=== PATIENT | female | born 1940 | race Caucasian/White ===

== ENCOUNTER 2016-09-20 13:18 | Outpatient (CLI) | payer MEDICARE ==
[~2016-09-20] VITALS: Ht 167.6 cm; Wt 73.0 kg
[2016-09-20 13:27] VITALS: BP 122/67
[2016-09-20] MEDS ORDERED: PRD10T PO (13:43)
[2016-09-20] MEDS ORDERED: METO-270 PO (13:43)
[2016-09-20] MEDS ORDERED: ASPI-933 PO (13:43)
[2016-09-20] MEDS ORDERED: RIVA20TA PO (13:43)
[2016-09-20 14:09] LABS: BASOPHILS % (AUTO) 0 % (0-10); EOSINOPHILS % (AUTO) 0 % (0-10); LYMPHOCYTES # (AUTO) 1.1 X 10^3 (1.0-4.0); LYMPHOCYTES % (AUTO) 12 % (12-44); MEAN CORPUSCULAR HEMOGLOBIN 32 PG (25-34); MEAN CORPUSCULAR HGB CONC 33 G/DL (32-36); MEAN CORPUSCULAR VOLUME 96 FL (80-99); MEAN PLATELET VOLUME 10.3 FL (7.4-10.4); MONOCYTES # (AUTO) 0.3 X 10^3 (0.0-1.0); MONOCYTES % (AUTO) 4 % (0-12); NEUTROPHILS # (AUTO) 7.4 X 10^3 (1.8-7.8); NEUTROPHILS % (AUTO) 84 % (42-75); PLATELET COUNT 266 10^3/uL (130-400); RED CELL DISTRIBUTION WIDTH 13.6 % (10.0-14.5); WHITE BLOOD COUNT 8.8 10^3/uL (4.3-11.0)
[2016-09-23] MEDS ORDERED: HYDR-3730 PO (12:33)
[2016-09-23] MEDS ORDERED: MESA800T PO (12:33)
== END 2016-09-20 13:55 | disposition home or self-care (01) ==
LOC: PREOP 13:18
PROVIDERS: ATTEND Surgery Pediatric Surgery
DX: Z01.812 Encounter for preprocedural laboratory examination (principal); Z11.2 Encounter for screening for other bacterial diseases; K63.9 Disease of intestine, unspecified
CPT/HCPCS: 36415; 85025; 87081

== ENCOUNTER 2016-09-23 07:53 | Day surgery (SDC) | payer MEDICARE ==
[~2016-09-23] VITALS: Ht 167.6 cm; Wt 73.0 kg
[~2016-09-23 07:53] MED LIST: ASPI-933 PO; METO-270 PO; PRD10T PO; RIVA20TA PO
--- NOTE | 2016-09-23 07:55 | Progress Note-Pre Operative ---
Pre-Operative Progress Note H&P Reviewed The H&P was reviewed, patient examined and no changes noted. Date Seen by Provider: Sep 23, 2016 Time Seen by Provider: 07:55 Date H&P Reviewed: Sep 23, 2016 Time H&P Reviewed: 07:50 Pre-Operative Diagnosis: Colon mass HUSSAIN PETTY APRN Sep 23, 2016 7:55 am
[2016-09-23] MEDS ORDERED: ceFAZolin 1 GM/NS 50 ML IVPB IV ONE ×2 (08:00)
[2016-09-23 08:12] VITALS: BP 152/71
[2016-09-23] MEDS ORDERED: LACTATED RINGERS 1,000 ML IV ONE ×2 (10:10→12:24)
[2016-09-23] MEDS ORDERED: ROCURONIUM 50 MG/5 ML (ZEMURON) VIAL IV ONE (10:10)
[2016-09-23] MEDS ORDERED: fentaNYL INJECTION 100 MCG/2 ML AMP ONE (10:10)
[2016-09-23] MEDS ORDERED: DEXAMETHASONE PF 10 MG/ML (DECADRON) VIAL ONE (10:10)
[2016-09-23] MEDS ORDERED: LIDOCAINE JELLY 2% (XYLOCAINE) 5 ML TUBE ONE (10:10)
[2016-09-23] MEDS ORDERED: proPOfol 200 MG/20 ML (DIPRIVAN) VIAL IV ONE (10:10)
[2016-09-23] MEDS ORDERED: SEVOFLURANE (ULTANE) 15 ML INHAL SOLN ONE ×4 (10:10→12:24)
[2016-09-23] MEDS ORDERED: ONDANSETRON 4 MG/2 ML (SDV) Z0FRAN ONE (10:10)
[2016-09-23] MEDS ORDERED: BUP/EPI 0.5% 1:200,000 (SENSORCAINE) 30 ML VIAL ONE (10:15)
[2016-09-23] MEDS ORDERED: PHENYLEPHRINE 100 MCG/ML 10 ML (ANESTHESIA) SYR ONE (11:05)
[2016-09-23] MEDS: LACTATED RINGERS 1,000 ML IV PRN ×2 (11:30→12:50)
--- NOTE | 2016-09-23 12:22 | Progress Note-Post Operative ---
Post-Operative Progess Note Surgeon (s)/Foundry Melt Supervisor (s) Surgeon SONIDO LORENZO MD [employer] Supervisor: elicia sol MATERIALS DEVELOPMENT ENGINEER Pre-Operative Diagnosis Colon mass Post-Operative Diagnosis segmental colitis cecum. Procedure & Operative Findings Date of Procedure 09/23/16 Procedure Performed/Findings diagnostic laparoscopy. colonoscopy. Anesthesia Type GET Estimated Blood Loss Estimated blood loss (mL): minimal Specimens/Packing Specimens Removed cecal mucosa SONIDO LORENZO MD Sep 23, 2016 12:22 pm
[2016-09-23] MEDS ORDERED: ONDANSETRON 4 MG/2 ML (SDV) Z0FRAN IVP PRN ×2 (12:30→12:45)
[2016-09-23] MEDS ORDERED: HYDROcodone/APAP 5 MG/325 MG (LORTAB) TAB PO ONE (12:30)
[2016-09-23] MEDS ORDERED: ACETAMINOPHEN 325 MG TABLET/CAPLET (TYLENOL) PO PRN (12:30)
[2016-09-23] MEDS ORDERED: fentaNYL INJECTION 100 MCG/2 ML AMP IVP PRN ×2 (12:30→12:45)
[2016-09-23] MEDS ORDERED: HYDR-3730 PO (12:33)
[2016-09-23] MEDS ORDERED: MESA800T PO (12:33)
--- NOTE | 2016-09-23 12:34 | Discharge Inst-Surgical ---
D/C Lap Instructions-MAURA New, Converted, or Re-Newed RX: RX on Chart Follow Up Appt in 2 weeks Activity as tolerated No driving for 24 hours No driving while on pain medications Incentive Spirometry use every 2 hours while awake Regular Diet Symptoms to Report: Fever over 101 degree F, Nausea/Vomiting Infection Signs and Symptoms to report: Increased redness, Foul odor of wound, Increased drainage Bathing instructions: May shower Operative Area Clean/Dry; Keep incision clean/dry If any problems/questions: Contact your physician or go to Emergency Room SONIDO LORENZO MD Sep 23, 2016 12:33 pm
[2016-09-23] MEDS ORDERED: HYDROmorphone (DILAUDID) 2 MG/ML VIAL ONE (12:37)
[2016-09-23] MEDS: HYDROmorphone (DILAUDID) 2 MG/ML VIAL IVP PRN ×2 (12:40→12:50)
[2016-09-23 13:35] VITALS: BP 130/56
[2016-09-23 14:05] VITALS: BP 130/79
[2016-09-23 14:35] VITALS: BP 132/72
[2016-09-23 14:45] VITALS: BP 132/72
--- NOTE | 2016-09-23 17:26 | OPERATIVE REPORT ---
DATE OF SERVICE: 09/23/2016 ATTENDING PHYSICIAN: Dr. Lubna Perez in [place], [place]. PREOPERATIVE DIAGNOSIS: Cecal mass. POSTOPERATIVE DIAGNOSES: Segmental colitis of the cecum, mesenteric fat creeping along the cecum. The remainder of the colon and small bowel, liver and gallbladder appeared normal. PROCEDURES: Diagnostic laparoscopy, colonoscopy with biopsy. SURGEON: Dr. Estes. DIRECTOR OF PLANNING: elicia sol APRN ANESTHESIA: General endotracheal. ESTIMATED BLOOD LOSS: Minimal. FINDINGS: No intraperitoneal lesions were identified including no full thickness serosal inflammatory changes o tumors. The only minor abnormality may have been the mesenteric fat creeping along the right side of the colon. There were no active inflammatory changes, no masses, no lymphadenopathy. The liver and gallbladder appeared normal as did the stomach and omentum. The entire small bowel and colon were ran and no other abnormalities detected. On colonoscopy, there were chronic mucosal inflammatory changes which encompassed only the cecum. The appendix was surgically absent. There was no fungating masses or polyps identified. DISPOSITION: The patient tolerated the procedure well. INDICATIONS: The patient is a 76-year-old female who was referred over to us for low back pain as well as a lesion identified on CT scan. She states that she has had abdominal pain. She had abdominal pain one year ago and underwent a CT scan which did not show any abnormalities. Since that time, she developed the abdominal pain; however, also developed back pain which persisted and worsened over the past several weeks. Upon further questioning, she does report a history of constipation as well as hemorrhoidal bleeding requiring hemorrhoidectomy around 2011. She does not report any episodes of red blood per rectum, nor any dark tarry stools. She states that she had her last colonoscopy approximately 3 years ago and remembers that to be normal. She is otherwise tolerating a regular diet and has not reported any recent inadvertent weight loss. She does not report any family history of colon cancer. She has had a previous surgery before encompassing a hysterectomy and oophorectomy and is unsure if the appendix was removed at the time or not. The CT scan was reviewed, which did show thickening around the base of the cecum near the appendiceal opening. Due to her recurrent symptoms as well as uncertainty of diagnosis, she wanted to proceed with a diagnostic laparoscopy. DESCRIPTION OF PROCEDURE: The patient was brought to the operating room, laid supine on the table. After adequate IV pain and sedating medications and general endotracheal intubation, the abdomen was prepped and draped in standard surgical fashion. A 0.5% Marcaine with epinephrine was then used to anesthetize the overlying skin in the left upper abdominal quadrant. A small transverse skin incision was made using a 15 blade. An 0 silk suture was applied to the medial aspect of the incision for retraction and a Veress needle inserted with a low opening pressure of 0 mmHg and the abdomen was then insufflated to 15 mmHg pressure. The Veress needle removed and a 5 mm Xcel trocar placed followed by a 5 mm 45-degree angle laparoscope visualizing the peritoneal cavity. A 4 quadrant abdominal exploration was performed. No carcinomatosis or obvious tumors or lymphadenopathy was identified. The gallbladder and liver appeared normal as did the stomach and omentum. Under direct visualization, we then proceeded to place the supraumbilical 10 mm port after the skin and peritoneum were anesthetized using 0.5% Marcaine with epinephrine and a transverse skin incision made using a 15 blade. In a similar manner, a suprapubic 5 mm port was placed. The patient was then placed in Trendelenburg position. There was a surgically absent appendix. There was no serosal inflammatory changes of the cecum identified. The only abnormality may have been mesenteric fat creeping along the antimesenteric side of the right colon. The entire colon was examined with no inflammatory changes identified. The entire small bowel was ran from the cecum and terminal ileum all the way to the ligament of Treitz with no mucosal inflammatory changes or serosal inflammatory changes identified as well as no tumors. There was also no lymphadenopathy. There was a surgically absent uterus as well as ovaries, no hernias identified as well. The sterile field was protected and we then proceeded with the colonoscopy portion of the procedure. The patient was placed in a frog leg position and a digital rectal examination was performed. There were no sinus tracts or drainage coming from the anus. Normal sphincter tone was felt and there were no palpable masses. The endoscope was then intubated to the anus and rectum and gently insufflated. The endoscope was then advanced to the valves of Kapoor of the rectum with no polyps or any neoplasms identified as well as no mucosal inflammatory changes. We then proceeded through the sigmoid colon where no diverticulosis identified. The endoscope was then advanced through the descending, transverse and ascending colon to the cecum. At the level of the cecum, a segmental colitis was identified. This appeared to be chronic in nature. Multiple biopsies were taken of this area using forceps with visualization of good hemostasis. The endoscope was then slowly withdrawn while taking a second look and suctioning of residual air with no additional findings. The patient tolerated this portion of the procedure well. We will await the biopsy results; however, treat her for inflammatory bowel disease and start mesalamine 1600 mg p.o. t.i.d. for the next 2 weeks. We then proceeded back to the sterile field and under direct visualization, the 10 mm port site fascia and peritoneum were then closed under direct visualization using a Basim-Kathleen device and 0 Vicryl suture. The abdomen was desufflated and the remaining ports were removed. All skin incisions were closed using 4-0 Monocryl running subcuticular sutures. Wounds were then cleaned and covered with Dermabond. The patient tolerated the procedure well. We will start IV and oral pain medication as well as a clear liquid diet. Once she is tolerating clears and has good pain control with oral pain medications and ambulating well, we will discharge her home. Job ID: [id number] DocumentID: [id number] Dictated Date: 09/23/2016 12:45:10 Customer Contact Representative Date: 09/23/2016 15:14:44 Dictated By: SONIDO ESTES MD [facility]
== END 2016-09-23 14:45 | disposition home or self-care (01) ==
LOC: SDC 07:53
PROVIDERS: ATTEND Surgery Pediatric Surgery
DX: K50.10 Crohn's disease of large intestine without complications (principal); I48.91 Unspecified atrial fibrillation; I10 Essential (primary) hypertension; Z79.899 Other long term (current) drug therapy
CPT/HCPCS: 88305; 94664

== ENCOUNTER 2018-08-24 16:00 | Emergency (ER) | payer MEDICARE ==
[~2018-08-24] VITALS: Ht 167.6 cm; Wt 76.2 kg
[~2018-08-24 16:00] MED LIST changes: +HYDR-3730 PO; +MESA800T PO; -METO-270 PO; +METO-387 PO; -RIVA20TA PO; +RIVA20TA2 PO
--- NOTE | 2018-08-24 16:21 | ED Head Injury ---
General Chief Complaint: Trauma-Non Activation Stated Complaint: FALL - HIT HEAD ON DRESSER Source: patient Exam Limitations: no limitations History of Present Illness Date Seen by Provider: August 24, 2018 Time Seen by Provider: 16:12 Initial Comments Patient arrives by private conveyance with chief complaint of head injury after she was up on a small step stool about half an off the ground trying to hang curtains doing some spring cleaning area and chief striking the right frontal scalp against a dresser. She is not sure if she got knocked out but she doesn't think she lost consciousness. She had no nausea but little momentary instability and difficulty getting back For about 5 or 10 minutes afterwards. She is on Xarelto for history of atrial fibrillation. She's not having any nausea. She doesn't have headache she rates as a 3 out of 10 but does not want anything for it presently. Allergies and Home Medications Allergies Coded Allergies: methotrexate (Verified Allergy, Unknown, DIFFICULTY BREATHING, 08/24/18) morphine (Verified Allergy, Unknown, NAUSEA, 08/24/18) Home Medications Aspirin 81 Mg Tablet.dr, 81 MG PO DAILY, (Reported) Hydrocodone/Acetaminophen 1 Each Tablet, 1-2 EACH PO Q4H Prescribed by: SONIDO LORENZO on 09/23/16 1233 Mesalamine 800 Mg Tablet.dr, 1,600 MG PO TID Prescribed by: SONIDO LORENZO on 09/23/16 1233 Metoprolol Succinate 25 Mg Tab.er.24h, 25 MG PO DAILY, (Reported) Prednisone 10 Mg Tab, 10 MG PO DAILY, (Reported) Rivaroxaban 20 Mg Tablet, 20 MG PO DAILY, (Reported) Patient Home Medication List Home Medication List Reviewed: Yes Review of Systems Review of Systems Constitutional: No chills, No diaphoresis Eyes: Denies Pain, Denies Photophobia Ears, Nose, Mouth, Throat: denies ear pain, denies ear discharge Respiratory: No cough, No short of breath Cardiovascular: No chest pain, No edema Gastrointestinal: No abdominal pain, No constipation, No diarrhea, No nausea Genitourinary: No discharge, No dysuria Past Hngcews-Azwkia-Eyyewb Hx Patient Social History Alcohol Use: Denies Use Recreational Drug Use: No Smoking Status: Never a Smoker Recent Hopitalizations: No Immunizations Up To Date Date of Pneumonia Vaccine: Sep 20, 2013 Seasonal Allergies Seasonal Allergies: Yes Past Medical History Appendectomy, Joint Replacement, Tubal Ligation Atrial Fibrillation, Hypertension Arthritis, Chronic Back Pain Family Medical History Alzheimer's disease 19 MOTHER Cardiovascular disease 19 FATHER Hypertension 19 FATHER Myocardial infarction 19 FATHER Respiratory disorder G8 BROTHER (lung CA) Physical Exam Vital Signs Vital Signs - First Documented 08/24/18 16:18 Temp 96.9 Pulse 81 Resp 20 B/P (MAP) 167/75 (105) Pulse Ox 97 Capillary Refill : Height, Weight, BMI Height: 5'6.00" Weight: 161lbs. 0.0oz. 73.630753cz; 26.0 BMI Method: General Appearance: WD/WN, no apparent distress HEENT: PERRL/EOMI, normal ENT inspection, TMs normal, pharynx normal, other (3 cm round ecchymotic hematoma on the right forehead above the right eyebrow) Neck: non-tender, full range of motion, supple, normal inspection Cardiovascular: normal peripheral pulses, regular rate, rhythm Respiratory: no respiratory distress, no accessory muscle use Psychiatric: alert, oriented x 3 Crainal Nerves: normal hearing, normal speech, PERRL Coordination/Gait: normal finger to nose, normal gait Motor/Sensory: no motor deficit, no sensory deficit, no pronator drift Skin: warm/dry, ecchymosis Rob Coma Score Best Eye Response: (4) Open Spontaneously Best Verbal Response: (5) Oriented Best Motor Response: (6) Obeys Commands Rob Total: 15 Progress/Results/Core Measures Results/Orders My Orders Orders - GERALD CHEW Ct Head/Cervical Spine Wo (08/24/18 16:16) Vital Signs/I&O 08/24/18 16:18 Temp 96.9 Pulse 81 Resp 20 B/P (MAP) 167/75 (105) Pulse Ox 97 Progress Progress Note : Time: 16:[address] of the head and neck is indicated. She does not seem to have any neurologic dysfunction and has declined anything for pain at the moment. Based on her momentary disorientation or difficulty with balance after her fall and head strike would diagnose her with a mild concussion and have done conservative counseling. She's having no issues with ambulation at this time. Diagnostic Imaging Diagonstic Imaging: CT (without contrast) Plain Films/CT/US/NM/MRI: c-spine, head Comments No acute intracranial hemorrhage, mass effect, tumor or midline shift. No calvarial fracture. No cervical spinal fracture or subluxation. There is moderate degenerative changes. [facility] [place], [place] NAME: RALEIGH JOSEPH [facility] REC#: [id number] PT STATUS: REG ER : 1940 PHYSICIAN: GERALD CHEW MD ADMIT DATE: 08/24/18/ER FS Draft Date of Exam:08/24/18 CT HEAD/CERVICAL SPINE WO CLINICAL INDICATION: Patient states she fell and hit head on dresser. Patient has swelling and bruising at right side of forehead. EXAM: Head CT without IV contrast. Axial CT scan of the cervical spine with sagittal and coronal reformations. COMPARISON: None. FINDINGS: Head CT: There is skull streak artifact which obscures portions of the brainstem, posterior fossa, and portions of the brain at the skull base. There is no evidence of acute cerebral infarct, intracranial hemorrhage, or gross mass effect. The brain parenchymal volume appears appropriate for patient's age. There are subtle patchy areas of low-attenuation white matter changes involving both cerebral hemispheres, likely representing chronic small vessel ischemic disease. There is normal bartholomew-white matter distinction. There is no significant midline shift or herniation. The visualized upper [place] vascular structures have normal flow void appearance. There is no evidence of hydrocephalus. The basal cisterns are unremarkable. There is a small area of extracranial soft tissue swelling involving the right frontal region. There is no skull fracture. The skull, extracranial soft tissue, and orbits are unremarkable. There is mild mucosal thickening involving the sphenoid sinus. Temporal bones show no significant abnormality. Cervical spine: There is no acute cervical spine fracture or dislocation. There are cervical spine vertebral body spurs and facet arthropathy. There is moderate loss of intervertebral disc height seen at the C3 through C7 levels. There is at least wacn-wq-kjfbdbrv central canal narrowing at the C3 through C7 levels with femhdsld-rj-ivhjbv multilevel neural foramen narrowing. Visualized upper lung blunt are clear. The neck soft tissue structures are unremarkable. IMPRESSION: 1: There is no evidence of acute intracranial hemorrhage. There is a small area of extracranial soft tissue swelling in the right frontal region. There is no skull fracture. 2: There is cervical spine degenerative disease with no acute fracture or dislocation. Dictated on workstation # [id number] Dict: 08/24/18 1643 Trans: 08/24/18 1657 [facility] [id number] Interpreted by: SAUD DUCKWORTH MD Electronically signed by: Departure Impression Primary Impression: Fall Qualified Codes: W19.XXXA - Unspecified fall, initial encounter Additional Impressions: Contusion of forehead Qualified Codes: S00.83XA - Contusion of other part of head, initial encounter Mild concussion Qualified Codes: S06.0X0A - Concussion without loss of consciousness, initial encounter Disposition: HOME, SELF-CARE Condition: Stable Departure-Patient Inst. Decision time for Depature: 17:14 Referrals: SHEFALI ANDERSON MD (PCP/Family) Primary Care Physician Patient Instructions: Concussion, Adult (DC) Add. Discharge Instructions: Apply an ice pack to the goose egg on your forehead as often as necessary to keep the swelling down and pain under control for the first 1-2 days. Use Tylenol 1000 mg every 8 hours in addition to ibuprofen 600 mg every 8 hours as needed for pain. If you have any symptoms of a concussion such as headache, nausea, off balance, blurry vision then you need to get some sleep and temperature brain to rest. If you're having confusion, weakness, numbness or severe symptoms that are not improving despite rest or pain meds then you should return to the ER for further evaluation. All discharge instructions reviewed with patient and/or family. Voiced understanding. GERALD CHEW August 24, 2018 16:21
--- NOTE | 2018-08-24 16:57 | Diagnostic Imaging Report ---
CLINICAL INDICATION: Patient states she fell and hit head on dresser. Patient has swelling and bruising at right side of forehead. EXAM: Head CT without IV contrast. Axial CT scan of the cervical spine with sagittal and coronal reformations. COMPARISON: None. FINDINGS: Head CT: There is skull streak artifact which obscures portions of the brainstem, posterior fossa, and portions of the brain at the skull base. There is no evidence of acute cerebral infarct, intracranial hemorrhage, or gross mass effect. The brain parenchymal volume appears appropriate for patient's age. There are subtle patchy areas of low-attenuation white matter changes involving both cerebral hemispheres, likely representing chronic small vessel ischemic disease. There is normal bartholomew-white matter distinction. There is no significant midline shift or herniation. The visualized [place] of [place] vascular structures have normal flow void appearance. There is no evidence of hydrocephalus. The basal cisterns are unremarkable. There is a small area of extracranial soft tissue swelling involving the right frontal region. There is no skull fracture. The skull, extracranial soft tissue, and orbits are unremarkable. There is mild mucosal thickening involving the sphenoid sinus. Temporal bones show no significant abnormality. Cervical spine: There is no acute cervical spine fracture or dislocation. There are cervical spine vertebral body spurs and facet arthropathy. There is moderate loss of intervertebral disc height seen at the C3 through C7 levels. There is at least kvhe-dp-gcysckob central canal narrowing at the C3 through C7 levels with fqxmmztu-tv-ecoqol multilevel neural foramen narrowing. Visualized upper lung blunt are clear. The neck soft tissue structures are unremarkable. IMPRESSION: 1: There is no evidence of acute intracranial hemorrhage. There is a small area of extracranial soft tissue swelling in the right frontal region. There is no skull fracture. 2: There is cervical spine degenerative disease with no acute fracture or dislocation. Dictated by: Dictated on workstation # [id number]
[2018-08-24 17:19] VITALS: BP 165/69
== END 2018-08-24 17:20 | disposition home or self-care (01) ==
LOC: EDUNIT# 16:00 → ER FS 16:01
DX: S06.0X0A Concussion without loss of consciousness, initial encounter (principal); I48.91 Unspecified atrial fibrillation; I10 Essential (primary) hypertension; R40.2142 Coma scale, eyes open, spontaneous, at arrival to emergency department; R40.2252 Coma scale, best verbal response, oriented, at arrival to emergency department; R40.2362 Coma scale, best motor response, obeys commands, at arrival to emergency department; Z82.49 Family history of ischemic heart disease and other diseases of the circulatory system; Z98.51 Tubal ligation status; Z90.49 Acquired absence of other specified parts of digestive tract; Z88.5 Allergy status to narcotic agent; Z88.8 Allergy status to other drugs, medicaments and biological substances; Z79.82 Long term (current) use of aspirin; Z79.52 Long term (current) use of systemic steroids; Z79.01 Long term (current) use of anticoagulants; W22.03XA Walked into furniture, initial encounter
CPT/HCPCS: 70450; 72125

== ENCOUNTER → 2020-01-17 | Outpatient (CLI) | payer MEDICARE ==
[~2020-01-17] MED LIST changes: -METO-387 PO; +MTP25TSR PO
[2020-01-17 10:02] LABS: BILIRUBIN,TOTAL 0.5 MG/DL (0.1-1.0); CALCIUM 9.5 MG/DL (8.5-10.1); CREATININE SERUM 1.02 MG/DL (0.60-1.30); TOTAL PROTEIN 6.7 GM/DL (6.4-8.2)
== END ==
LOC: LAB FS 09:23
PROVIDERS: ATTEND Family Medicine
DX: E78.2 Mixed hyperlipidemia (principal)
CPT/HCPCS: 36415; 80053; 80061

== ENCOUNTER 2020-02-22 12:42 | Emergency (ER) | payer MEDICARE ==
[~2020-02-22] VITALS: Ht 170.1 cm; Wt 76.3 kg
[2020-02-22] MEDS ORDERED: KETOROLAC 60 MG/2 ML VIAL IV ONE (13:00)
[2020-02-22] MEDS ORDERED: ONDANSETRON 4 MG/2 ML (SDV) Z0FRAN IVP ONE (13:00)
--- NOTE | 2020-02-22 13:02 | ED Lower Extremity ---
General Chief Complaint: Lower Extremity Stated Complaint: LT FOOT PAIN Source: patient, RN/MD, RN notes reviewed Exam Limitations: no limitations History of Present Illness Date Seen by Provider: Feb 22, 2020 Time Seen by Provider: 12:55 Initial Comments This patient is an 79-year-old female presents to the emergency department for left foot pain. Patient has redness to the left midfoot medially at the arch. Complaints significant pain. Patient states it started yesterday is gradually gotten worse. Patient denies any injury. Onset: yesterday Pain/Injury Location: left foot Method of Injury: unknown Allergies and Home Medications Allergies Coded Allergies: methotrexate (Verified Allergy, Unknown, DIFFICULTY BREATHING, 08/24/18) morphine (Verified Allergy, Unknown, NAUSEA, 08/24/18) Home Medications Aspirin 81 Mg Tablet.dr, 81 MG PO DAILY, (Reported) Hydrocodone/Acetaminophen 1 Each Tablet, 1-2 EACH PO Q4H Prescribed by: SONIDO LORENZO on 09/23/16 1233 Mesalamine 800 Mg Tablet.dr, 1,600 MG PO TID Prescribed by: SONIDO LORENZO on 09/23/16 1233 Metoprolol Succinate 25 Mg Tab.er.24h, 25 MG PO DAILY, (Reported) Prednisone 10 Mg Tab, 10 MG PO DAILY, (Reported) Rivaroxaban 20 Mg Tablet, 20 MG PO DAILY, (Reported) Patient Home Medication List Home Medication List Reviewed: Yes Review of Systems Constitutional: No no symptoms reported, No see HPI, No chills, No diaphoresis, No dizziness, No fever, No malaise, No weakness, No weight gain, No weight loss, No other EENTM: No see HPI, No no symptoms reported, No ear discharge, No hearing loss, No ear pain, No blurred vision, No double vision, No eye pain, No tearing, No vision loss, No dental problems, No hoarseness, No mouth pain, No mouth swelling, No epistaxis, No nose congestion, No nose pain, No throat pain, No throat swelling, No other Respiratory: No no symptoms reported, No see HPI, No cough, No dyspnea on exertion, No hemoptysis, No orthopnea, No phlegm, No short of breath, No stridor, No wheezing, No other Cardiovascular: No no symptoms reported, No see HPI, No chest pain, No edema, No Hx of Intervention, No palpitations, No syncope, No vascular heart diseas, No other Gastrointestinal: No RUQ, No LUQ, No RLQ, No LLQ, No no symptoms reported, No see HPI, No abdominal pain, No constipation, No diarrhea, No dysphagia, No hematemesis, No heartburn, No jaundice, No loss of appetite, No melena, No nausea, No vomiting, No other Musculoskeletal: see HPI, gout All Other Systems Reviewed Negative Unless Noted: Yes Past Iyeeotd-Nkbkuu-Pxyjgk Hx Patient Social History Recent Foreign Travel: No Contact w/Someone Who Travel: No Recent Hopitalizations: No Immunizations Up To Date Date of Pneumonia Vaccine: Sep 20, 2013 Seasonal Allergies Seasonal Allergies: Yes Past Medical History Surgeries: Yes (vein stripped in R leg, bilat TKR, R ovary removed,hemorrhoidectomy ) Appendectomy, Joint Replacement, Tubal Ligation Respiratory: No Cardiac: Yes (temporal arteritis) Atrial Fibrillation, Hypertension Neurological: No Gastrointestinal: Yes (abd pain CT found colon mass, ) Musculoskeletal: Yes Arthritis, Chronic Back Pain Endocrine: No Cancer: No Psychosocial: No Integumentary: No 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 0.0oz. 76.719953in; 26.0 BMI Method:Stated General Appearance: WD/WN, no apparent distress Cardiovascular: normal peripheral pulses, regular rate, rhythm, no edema, no gallop, no JVD, no murmur Respiratory: chest non-tender, lungs clear, normal breath sounds, no respiratory distress, no accessory muscle use Gastrointestinal: normal bowel sounds, non tender, soft, no organomegaly, no pulsatile mass Feet: left foot no evidence of injury, left foot soft tissue tenderness Skin: normal color, warm/dry Progress/Results/Core Measures Results/Orders Lab Results Laboratory Tests Test 02/22/20 13:15 Range/Units White Blood Count 10.8 4.3-11.0 10^3/uL Red Blood Count 4.51 4.35-5.85 10^6/uL Hemoglobin 14.8 11.5-16.0 G/DL Hematocrit 44 35-52 % Mean Corpuscular Volume 97 80-99 FL Mean Corpuscular Hemoglobin 33 25-34 PG Mean Corpuscular Hemoglobin Concent 34 32-36 G/DL Red Cell Distribution Width 13.2 10.0-14.5 % Platelet Count 243 130-400 10^3/uL Mean Platelet Volume 10.3 7.4-10.4 FL Immature Granulocyte % (Auto) 1 % Neutrophils (%) (Auto) 68 42-75 % Lymphocytes (%) (Auto) 21 12-44 % Monocytes (%) (Auto) 8 0-12 % Eosinophils (%) (Auto) 1 0-10 % Basophils (%) (Auto) 1 0-10 % Neutrophils # (Auto) 7.3 1.8-7.8 X 10^3 Lymphocytes # (Auto) 2.3 1.0-4.0 X 10^3 Monocytes # (Auto) 0.8 0.0-1.0 X 10^3 Eosinophils # (Auto) 0.1 0.0-0.3 10^3/uL Basophils # (Auto) 0.1 0.0-0.1 10^3/uL Immature Granulocyte # (Auto) 0.1 0.0-0.1 10^3/uL Sodium Level 141 135-145 MMOL/L Potassium Level 3.5 L 3.6-5.0 MMOL/L Chloride Level 104 98-107 MMOL/L Carbon Dioxide Level 26 21-32 MMOL/L Anion Gap 11 5-14 MMOL/L Blood Urea Nitrogen 13 7-18 MG/DL Creatinine 1.29 0.60-1.30 MG/DL Estimat Glomerular Filtration Rate 40 BUN/Creatinine Ratio 10 Glucose Level 96 70-105 MG/DL Calcium Level 9.3 8.5-10.1 MG/DL Corrected Calcium 9.3 8.5-10.1 MG/DL Total Bilirubin 0.7 0.1-1.0 MG/DL Aspartate Amino Transf (AST/SGOT) 19 5-34 U/L Alanine Aminotransferase (ALT/SGPT) 15 0-55 U/L Alkaline Phosphatase 42 40-136 U/L Total Protein 6.5 6.4-8.2 GM/DL Albumin 4.0 3.2-4.5 GM/DL My Orders Orders - BRANT CHU MD Uric Acid (02/22/20 12:59) Ed Iv/Invasive Line Start (02/22/20 12:59) Comprehensive Metabolic Panel (02/22/20 12:59) Cbc With Automated Diff (02/22/20 12:59) Urinalysis (02/22/20 12:59) Ondansetron Injection (Zofran Injectio (02/22/20 13:00) Ketorolac Injection (Toradol Injection) (02/22/20 13:00) Foot 3 View Left (02/22/20 12:59) Medications Given in ED Current Medications Medications Dose Ordered Sig/Kristi Route Start Time Stop Time Status Last Admin Dose Admin Ketorolac Tromethamine 15 mg ONCE ONCE IV 02/22/20 13:00 02/22/20 13:01 DC 02/22/20 13:07 15 MG Ondansetron HCl 4 mg ONCE ONCE IVP 02/22/20 13:00 02/22/20 13:01 DC 02/22/20 13:07 4 MG Progress Progress Note : Time: 14:49 Progress Note Negative evaluation in the emergency department for any acute findings. However believe the patient is developed pseudogout left foot. Patient given instructions patient follow up with PCP in 2-3 days. Departure Impression Primary Impression: Pseudogout of joint of foot Disposition: 01 HOME, SELF-CARE Condition: Stable Departure-Patient Inst. Decision time for Depature: 14:49 Referrals: SHEFALI ANDERSON MD (PCP/Family) Primary Care Physician Patient Instructions: Calcium Pyrophosphate Deposition DiseaseDischarge Instructions (DC) Add. Discharge Instructions: Keep foot elevated rest and drink plenty of fluids and take medications as instructed. Follow-up with PCP in 2-3 days All discharge instructions reviewed with patient and/or family. Voiced understanding. Scripts Diclofenac Sodium (Diclofenac Sodium) 75 Mg Tablet. 75 MG PO BID for 10 Days, #20 TAB 0 Refills Prov: BRANT CHU MD 02/22/20 BRANT CHU MD Feb 22, 2020 13:02
--- NOTE | 2020-02-22 13:24 | Diagnostic Imaging Report ---
INDICATION: Left foot pain and swelling and redness. AP, oblique, and lateral views the left foot are obtained. No fracture or acute bony abnormality is seen. There is no overt erosive bony lesion. IMPRESSION: Negative left foot. Dictated by: Dictated on workstation # [id number]
--- NOTE | 2020-02-22 13:25 | NUR ---
Checking on patient and she reports she is ready to go if able. Explained ER work up up take 1 to 1 1/2 hrs if labs also with radiology studies.
[2020-02-22 13:30] LABS: BASOPHILS # (AUTO) 0.1 10^3/uL (0.0-0.1); BASOPHILS % (AUTO) 1 % (0-10); EOSINOPHILS # (AUTO) 0.1 10^3/uL (0.0-0.3); EOSINOPHILS % (AUTO) 1 % (0-10); HEMATOCRIT 44 % (35-52); HEMOGLOBIN 14.8 G/DL (11.5-16.0); LYMPHOCYTES # (AUTO) 2.3 X 10^3 (1.0-4.0); LYMPHOCYTES % (AUTO) 21 % (12-44); MEAN CORPUSCULAR HEMOGLOBIN 33 PG (25-34); MEAN CORPUSCULAR HGB CONC 34 G/DL (32-36); MEAN CORPUSCULAR VOLUME 97 FL (80-99); MEAN PLATELET VOLUME 10.3 FL (7.4-10.4); MONOCYTES # (AUTO) 0.8 X 10^3 (0.0-1.0); MONOCYTES % (AUTO) 8 % (0-12); NEUTROPHILS # (AUTO) 7.3 X 10^3 (1.8-7.8); NEUTROPHILS % (AUTO) 68 % (42-75); PLATELET COUNT 243 10^3/uL (130-400); WHITE BLOOD COUNT 10.8 10^3/uL (4.3-11.0)
[2020-02-22 13:48] LABS: BILIRUBIN,TOTAL 0.7 MG/DL (0.1-1.0); CALCIUM 9.3 MG/DL (8.5-10.1); CREATININE SERUM 1.29 MG/DL (0.60-1.30); POTASSIUM 3.5 MMOL/L (3.6-5.0); TOTAL PROTEIN 6.5 GM/DL (6.4-8.2)
--- NOTE | 2020-02-22 14:35 | NUR ---
Rechecking on patient and pt denies any c/o's except pain is in foot if weight bearing
[2020-02-22] MEDS ORDERED: DICL75TA2 PO (14:50)
[2020-02-22 14:56] VITALS: BP 118/51
[2020-02-22] MEDS ORDERED: METO50TA7 (19:24)
[2020-02-22] MEDS ORDERED: ROSU20TA32 (19:24)
[2020-02-23 16:04] LABS: URIC ACID 6.7 MG/DL (2.6-7.2)
== END 2020-02-22 14:56 | disposition home or self-care (01) ==
LOC: EDUNIT# 12:42 → ER FS 12:43
DX: M11.272 Other chondrocalcinosis, left ankle and foot (principal); I10 Essential (primary) hypertension; G89.29 Other chronic pain; M54.9 Dorsalgia, unspecified; Z82.49 Family history of ischemic heart disease and other diseases of the circulatory system; Z88.5 Allergy status to narcotic agent; Z86.718 Personal history of other venous thrombosis and embolism; Z79.82 Long term (current) use of aspirin; Z79.52 Long term (current) use of systemic steroids; Z79.01 Long term (current) use of anticoagulants; Z79.891 Long term (current) use of opiate analgesic
CPT/HCPCS: 36415; 73630; 80053; 84550; 85025

== ENCOUNTER 2021-01-11 10:32 | Emergency (ER) | payer MEDICARE ==
[~2021-01-11] VITALS: Ht 162.6 cm; Wt 74.8 kg
[~2021-01-11 10:32] MED LIST changes: +DICL75TA2 PO; +METO50TA7; +ROSU20TA32
--- NOTE | 2021-01-11 10:43 | ED General ---
General Stated Complaint: RT EYE/FACIAL SHINGLES Source of Information: Patient Exam Limitations: No Limitations History of Present Illness Date Seen by Provider: Jan 11, 2021 Time Seen by Provider: 10:35 Initial Comments Patient is an 80-year-old female with history of rosacea and current shingles outbreak involving left shoulder and upper back x3 weeks who presents with central facial rash and right redness and pain. Patient is currently on Valtrex and states her back and shoulder lesions are improving. She states her facial rash broke out yesterday with eye involvement yesterday. Reports eye pain but denies drainage or matting. Patient does not wear contact lenses but wears corrective lenses. No other symptoms or complaints. Timing/Duration: 2-3 Days Severity: Moderate Modifying Factors: improves with Other Associated Systoms: Other Allergies and Home Medications Allergies Coded Allergies: methotrexate (Verified Allergy, Unknown, DIFFICULTY BREATHING, 08/24/18) morphine (Verified Allergy, Unknown, NAUSEA, 08/24/18) Patient Home Medication List Home Medication List Reviewed: Yes Aspirin (Ecotrin) 81 Mg Tablet.dr, 81 MG PO DAILY, (Reported) Entered as Reported by: HERLINDA VIDES on 09/20/16 1343 Cephalexin (Cephalexin) 500 Mg Tablet, 500 MG PO TID Prescribed by: ARSENIO LARSON on 01/11/21 112 Diclofenac Sodium (Diclofenac Sodium) 75 Mg Tablet.dr, 75 MG PO BID Prescribed by: BRANT CHU on 02/22/20 1450 Metoprolol Succinate (Metoprolol Succinate) 50 Mg Tab.er.24h, (Reported) Entered as Reported by: JOB POLLARD on 02/22/20 192 Ofloxacin (Ocuflox) 5 Ml Soln, 5 ML OP Q4H Prescribed by: ARSENIO LARSON on 01/11/21 112 Rivaroxaban (Xarelto Tablet) 20 Mg Tablet, 20 MG PO DAILY, (Reported) Entered as Reported by: HERLINDA VIDES on 09/20/16 1343 Rosuvastatin Calcium (Rosuvastatin Calcium) 20 Mg Tablet, (Reported) Entered as Reported by: JOB POLLARD on 02/22/201923 Tramadol HCl (Tramadol HCl) 50 Mg Tablet, 50 MG PO Q4H PRN for PAIN-MODERATE (5- 7) Prescribed by: ARSENIO LARSON on 01/11/21 1125 Review of Systems Review of Systems Constitutional: see HPI EENTM: see HPI Respiratory: see HPI Cardiovascular: see HPI Gastrointestinal: see HPI Genitourinary: see HPI Musculoskeletal: see HPI Skin: see HPI Psychiatric/Neurological: See HPI Hematologic/Lymphatic: See HPI Immunological/Allergic: see HPI All Other Systems Reviewed Negative Unless Noted: Yes Past Gbbjenn-Ugrhpa-Usagyo Hx Patient Social History Tobacco Use?: No Seasonal Allergies Seasonal Allergies: Yes Past Medical History Surgeries: Yes (vein stripped in R leg, bilat TKR, R ovary removed,hemorrhoidectomy ) Appendectomy, Joint Replacement, Tubal Ligation Respiratory: No Cardiac: Yes (temporal arteritis) Atrial Fibrillation, Hypertension Neurological: No Genitourinary: No Gastrointestinal: Yes (abd pain CT found colon mass ) Musculoskeletal: Yes Arthritis, Chronic Back Pain Endocrine: No HEENT: No Cancer: No Psychosocial: No Integumentary: No Blood Disorders: No (DVT in 1979) Family Medical History Alzheimer's disease 19 MOTHER Cardiovascular disease 19 FATHER Hypertension 19 FATHER Myocardial infarction 19 FATHER Respiratory disorder G8 BROTHER (lung CA) Physical Exam Vital Signs Vital Signs - First Documented 01/11/21 10:40 Temp 36.4 Pulse 87 Resp 18 B/P (MAP) 156/78 (104) Pulse Ox 96 O2 Delivery Room Air Capillary Refill : Height, Weight, BMI Height: 5'6.00" Weight: 168lbs. 0.0oz. 76.092504ur; 26.00 BMI Method:Stated General Appearance: Anxious Eyes: Right Eye Other (Conjunctiva injected, central corneal abrasion does not fit dendritic pattern. Visual acuity per nurse notes.); Bilateral Eye Normal Inspection, Bilateral Eye PERRL HEENT: PERRL/EOMI, Pharynx Normal, Moist Mucous Membranes Neck: Full Range of Motion, Normal Inspection, Supple Progress/Results/Core Measures Suspected Sepsis SIRS Temperature: Pulse: Respiratory Rate: Laboratory Tests 01/11/21 11:08: White Blood Count 8.8 Blood Pressure / Mean: Laboratory Tests 01/11/21 11:08: Platelet Count 217 Results/Orders Lab Results Laboratory Tests Test 01/11/21 11:08 Range/Units White Blood Count 8.8 4.3-11.0 10^3/uL Red Blood Count 4.35 3.80-5.11 10^6/uL Hemoglobin 14.3 11.5-16.0 g/dL Hematocrit 43 35-52 % Mean Corpuscular Volume 98 80-99 fL Mean Corpuscular Hemoglobin 33 25-34 pg Mean Corpuscular Hemoglobin Concent 34 32-36 g/dL Red Cell Distribution Width 13.4 10.0-14.5 % Platelet Count 217 130-400 10^3/uL Mean Platelet Volume 10.1 9.0-12.2 fL Immature Granulocyte % (Auto) 0 % Neutrophils (%) (Auto) 63 42-75 % Lymphocytes (%) (Auto) 27 12-44 % Monocytes (%) (Auto) 9 0-12 % Eosinophils (%) (Auto) 1 0-10 % Basophils (%) (Auto) 1 0-10 % Neutrophils # (Auto) 5.5 1.8-7.8 X 10^3 Lymphocytes # (Auto) 2.4 1.0-4.0 X 10^3 Monocytes # (Auto) 0.8 0.0-1.0 X 10^3 Eosinophils # (Auto) 0.1 0.0-0.3 10^3/uL Basophils # (Auto) 0.1 0.0-0.1 10^3/uL Immature Granulocyte # (Auto) 0.0 0.0-0.1 10^3/uL My Orders Orders - ARSENIO LARSON DO Tetracaine 0.5% Ophth Pricilla Sdv (Tetracai (01/11/21 11:00) Cbc With Automated Diff (01/11/21 11:00) Comprehensive Metabolic Panel (01/11/21 11:00) Crp Fs (01/11/21 11:00) Fluorescein Strips (Twqnb-C-Cndjws) (01/11/21 11:01) Medications Given in ED Current Medications Medications Dose Ordered Sig/Kristi Route Start Time Stop Time Status Last Admin Dose Admin Fluorescein Sodium 1 mg STK-MED ONCE .ROUTE 01/11/21 11:01 01/11/21 11:05 DC 01/11/21 11:11 1 MG Tetracaine HCl 1 OR 2 DROPS INTO AFFEC... ONCE ONCE OP 01/11/21 11:00 01/11/21 11:01 DC 01/11/21 11:01 1 ML Vital Signs/I&O 01/11/21 10:40 Temp 36.4 Pulse 87 Resp 18 B/P (MAP) 156/78 (104) Pulse Ox 96 O2 Delivery Room Air Capillary Refill : Departure Communication (Admissions) Patient with rosacea-like facial rash with possible corneal abrasion/dendritic region. Patient is currently on Valtrex and prednisone. She has been rubbing cream on her face which has made her facial worse. Will place some topical oral antibiotics and pain medication. Patient instructed to follow-up with phys therapist tomorrow. Return to the ED if worse. Impression Primary Impression: Rosacea Additional Impressions: Facial cellulitis Corneal abrasion, right Disposition: 01 HOME, SELF-CARE Condition: Stable Departure-Patient Inst. Decision time for Depature: 11:21 Referrals: CARLO NOBLE MD (PCP/Family) Primary Care Physician Patient Instructions: Cellulitis (Skin Infection), Adult ED, Corneal Abrasion Add. Discharge Instructions: Please do not rub any ointments or creams on your facial rash. Take tramadol for pain and apply topical drops to right eye. Take oral antibiotics as di rected and follow-up with your eye doctor tomorrow for reevaluation. Return to the ED if new or worsening symptoms. Scripts Tramadol HCl (Tramadol HCl) 50 Mg Tablet 50 MG PO Q4H PRN for PAIN-MODERATE (5-7), #10 TAB Prov: ARSENIO LARSON DO 01/11/21 Ofloxacin (Ocuflox) 5 Ml Soln 5 ML OP Q4H, #1 EA Prov: ARSENIO LARSON DO 01/11/21 Cephalexin (Cephalexin) 500 Mg Tablet 500 MG PO TID, #30 TAB Prov: ARSENIO LARSON DO 01/11/21 ARSENIO LARSON DO Jan 11, 2021 10:43
[2021-01-11] MEDS ORDERED: TETRACAINE 0.5% OPHTH SOLN 4 ML BTL (SINGLE DOSE ONLY) OP ONE (11:00)
[2021-01-11] MEDS ORDERED: FLUORESCEIN (FLUOR-I-STRIPS) 1 MG STRP ONE (11:01)
[2021-01-11 11:14] LABS: BASOPHILS # (AUTO) 0.1 10^3/uL (0.0-0.1); BASOPHILS % (AUTO) 1 % (0-10); EOSINOPHILS # (AUTO) 0.1 10^3/uL (0.0-0.3); EOSINOPHILS % (AUTO) 1 % (0-10); HEMATOCRIT 43 % (35-52); HEMOGLOBIN 14.3 g/dL (11.5-16.0); LYMPHOCYTES # (AUTO) 2.4 X 10^3 (1.0-4.0); LYMPHOCYTES % (AUTO) 27 % (12-44); MEAN CORPUSCULAR HEMOGLOBIN 33 pg (25-34); MEAN CORPUSCULAR HGB CONC 34 g/dL (32-36); MEAN CORPUSCULAR VOLUME 98 fL (80-99); MEAN PLATELET VOLUME 10.1 fL (9.0-12.2); MONOCYTES # (AUTO) 0.8 X 10^3 (0.0-1.0); MONOCYTES % (AUTO) 9 % (0-12); NEUTROPHILS # (AUTO) 5.5 X 10^3 (1.8-7.8); NEUTROPHILS % (AUTO) 63 % (42-75); PLATELET COUNT 217 10^3/uL (130-400); WHITE BLOOD COUNT 8.8 10^3/uL (4.3-11.0)
[2021-01-11] MEDS ORDERED: OFL.3OP5 OP (11:24)
[2021-01-11] MEDS ORDERED: TRM50T PO (11:24)
[2021-01-11] MEDS ORDERED: CEPH500T PO (11:24)
[2021-01-11 11:34] LABS: ALANINE AMINOTRANSFERASE 18 U/L (0-55); ALBUMIN 3.8 GM/DL (3.2-4.5); ALKALINE PHOSPHATASE 43 U/L (40-136); BILIRUBIN,TOTAL 0.9 MG/DL (0.1-1.0); BUN/CREATININE RATIO 15; CALCIUM 9.4 MG/DL (8.5-10.1); CARBON DIOXIDE 27 MMOL/L (21-32); CHLORIDE 102 MMOL/L (98-107); CREATININE SERUM 1.23 MG/DL (0.60-1.30); GFR ESTIMATED 42; GLUCOSE 85 MG/DL (70-105); POTASSIUM 3.9 MMOL/L (3.6-5.0); SODIUM 141 MMOL/L (135-145); TOTAL PROTEIN 6.5 GM/DL (6.4-8.2)
[2021-01-11 11:40] VITALS: BP 126/62
== END 2021-01-11 11:40 | disposition home or self-care (01) ==
LOC: EDUNIT# 10:32 → ER FS 10:34
DX: S05.01XA Injury of conjunctiva and corneal abrasion without foreign body, right eye, initial encounter (principal); L71.9 Rosacea, unspecified; L03.211 Cellulitis of face; I10 Essential (primary) hypertension; I48.91 Unspecified atrial fibrillation; Z79.82 Long term (current) use of aspirin; Z79.01 Long term (current) use of anticoagulants; Z79.899 Other long term (current) drug therapy; X58.XXXA Exposure to other specified factors, initial encounter
CPT/HCPCS: 36415; 80053; 85025; 86141

== ENCOUNTER 2021-02-06 10:50 | Emergency (ER) | payer MEDICARE ==
[~2021-02-06] VITALS: Ht 170.2 cm; Wt 78.5 kg
[~2021-02-06 10:50] MED LIST changes: +CEPH500T PO; +OFL.3OP5 OP; +TRM50T PO
--- NOTE | 2021-02-06 11:44 | Diagnostic Imaging Report ---
Indication: Fall with right shoulder pain. TIME OF EXAM: 11:18 AM 3 views of the right shoulder were obtained. Glenohumeral and acromial clavicular alignment are normal. There is a well-corticated osseous density projected just inferior to the inferior margin of the glenoid. This may represent chronic fracture. No acute fracture is seen. There are degenerative changes at the acromioclavicular joint. IMPRESSION: Chronic changes right shoulder. No acute bony abnormality is detected. Dictated by: Dictated on workstation # [id number]
--- NOTE | 2021-02-06 12:12 | ED Upper Extremity ---
General Chief Complaint: Trauma-Non Activation Stated Complaint: FALL; RT SHOULDER INJ Nursing Triage Note: PT TO ROOM [facility] VIA W/C FROM [facility] WITH C/O FALLING. PT REPORTS RIGHT SHOULDER PAIN. PT STATES SHE HIT HER RIGHT CHEEK ON THE FLOOR SHE SHE FELL. PT REPORTS HX OF FALLS. Source: patient Exam Limitations: no limitations History of Present Illness Date Seen by Provider: Feb 06, 2021 Time Seen by Provider: 11:00 Initial Comments Patient is an 80-year-old female who fell landing on her right shoulder 20 minutes prior to ED arrival while standing in the lobby of her physician office. Patient is currently on Xarelto for treatment of A. fib. She did strike her face but denies head injury headache or facial pain. No neck pain. Patient has tenderness to the right shoulder and limited use. There is no gross deformity. No arm elbow or forearm or wrist pain. Pain is mild to moderate no other symptoms or complaint. Onset: just prior to arrival Severity: moderate Pain/Injury Location: right shoulder Method of Injury: fell, other Modifying Factors: Improves With Other Allergies and Home Medications Allergies Coded Allergies: methotrexate (Verified Allergy, Unknown, DIFFICULTY BREATHING, 08/24/18) morphine (Verified Allergy, Unknown, NAUSEA, 08/24/18) Patient Home Medication List Home Medication List Reviewed: Yes Aspirin (Ecotrin) 81 Mg Tablet.dr, 81 MG PO DAILY, (Reported) Entered as Reported by: HERLINDA VIDES on 09/20/16 1343 Cephalexin (Cephalexin) 500 Mg Tablet, 500 MG PO TID Prescribed by: ARSENIO LARSON on 01/11/21 1124 Diclofenac Sodium (Diclofenac Sodium) 75 Mg Tablet.dr, 75 MG PO BID Prescribed by: BRANT CHU on 02/22/20 1450 Metoprolol Succinate (Metoprolol Succinate) 50 Mg Tab.er.24h, (Reported) Entered as Reported by: JOB POLLARD on 02/22/20 1924 Ofloxacin (Ocuflox) 5 Ml Soln, 5 ML OP Q4H Prescribed by: ARSENIO LARSON on 01/11/21 1124 Rivaroxaban (Xarelto Tablet) 20 Mg Tablet, 20 MG PO DAILY, (Reported) Entered as Reported by: HERLINDA VIDES on 09/20/16 1343 Rosuvastatin Calcium (Rosuvastatin Calcium) 20 Mg Tablet, (Reported) Entered as Reported by: JOB POLLARD on 02/22/20 1924 Tramadol HCl (Tramadol HCl) 50 Mg Tablet, 50 MG PO Q4H PRN for PAIN-MODERATE (5- 7) Prescribed by: ARSENIO LARSON on 01/11/21 1125 Review of Systems Constitutional: see HPI EENTM: see HPI Respiratory: see HPI Cardiovascular: see HPI Gastrointestinal: see HPI Genitourinary: see HPI Musculoskeletal: no symptoms reported Skin: no symptoms reported Psychiatric/Neurological: No Symptoms Reported All Other Systems Reviewed Negative Unless Noted: Yes Past Nxaflmp-Hdznfb-Iuafja Hx Patient Social History Tobacco Use?: Yes Smoking Status: Never a Smoker Smokeless Tobacco Frequency: Never a User Use of E-Cig and/or Vaping dev: No Use of E-Cig and/or Vaping [place]: Never a User Substance use?: No Alcohol Use?: No Pt feels they are or have been: No Immunizations Up To Date First/Initial COVID19 Vaccinat: 07/11/20 Second COVID19 Vaccination Ender: 08/08/20 Third COVID19 Vaccination Date: DUE IN MARCH Seasonal Allergies Seasonal Allergies: Yes Past Medical History Surgeries: Yes (vein stripped in R leg, bilat TKR, R ovary removed,hemorrhoidectomy ) Appendectomy, Joint Replacement, Tubal Ligation Respiratory: No Cardiac: Yes (temporal arteritis) Atrial Fibrillation, Hypertension Neurological: No Genitourinary: No Gastrointestinal: Yes (abd pain CT found colon mass ) Musculoskeletal: Yes Arthritis, Chronic Back Pain Endocrine: No HEENT: No Cancer: No Psychosocial: No Integumentary: No Blood Disorders: No (DVT in 1979) Family Medical History Alzheimer's disease 19 MOTHER Cardiovascular disease 19 FATHER Hypertension 19 FATHER Myocardial infarction 19 FATHER Respiratory disorder G8 BROTHER (lung CA) Physical Exam Vital Signs Vital Signs - First Documented 02/06/21 10:57 Temp 37.0 Pulse 93 Resp 17 B/P (MAP) 129/78 (95) O2 Delivery Room Air Capillary Refill : Less Than 3 Seconds Height, Weight, BMI Height: 5'6.00" Weight: 168lbs. 0.0oz. 76.361704yl; 27.00 BMI Method:Stated General Appearance: WD/WN, no apparent distress, other (Anxious) HEENT: PERRL/EOMI, normal ENT inspection Neck: non-tender, full range of motion Cardiovascular: regular rate, rhythm Respiratory: lungs clear Gastrointestinal: non tender, soft Shoulder: No bone tenderness, No deformity; limited ROM (Right shoulder), pain, soft tissue tenderness (Right shoulder) Wrist: Yes normal inspection, Yes non-tender Progress/Results/Core Measures Results/Orders My Orders Orders - ARSENIO LARSON DO Shoulder 3 View Right (02/06/21 11:08) Vital Signs/I&O 02/06/21 10:57 Temp 37.0 Pulse 93 Resp 17 B/P (MAP) 129/78 (95) O2 Delivery Room Air Blood Pressure Mean: 95 Departure Communication (Admissions) X-ray shoulder, no fracture or dislocation per radiology report Right shoulder injury without fracture dislocation. Patient placed in sling for comfort. Recommendations are limited use with PCP follow-up. Return precautions reviewed. Impression Primary Impression: Right shoulder injury Disposition: HOME, SELF-CARE Condition: Stable Departure-Patient Inst. Decision time for Depature: 12:15 Referrals: CARLO NOBLE MD (PCP/Family) Primary Care Physician Patient Instructions: Shoulder Sprain ED Add. Discharge Instructions: You were evaluated in the emergency department for right shoulder's injury. X- rays were performed and do not show fracture or dislocation. Please take Tylenol and/or tramadol for pain and limit right arm use. Follow-up with your PCP in 3 to 5 days for reevaluation. Return to the ED if new or worsening symptoms. All discharge instructions reviewed with patient and/or family. Voiced unde rstanding. ARSENIO LARSON DO Feb 06, 2021 12:12
[2021-02-06 12:18] VITALS: BP 149/82
== END 2021-02-06 12:18 | disposition home or self-care (01) ==
LOC: EDUNIT# 10:50 → ER FS 10:52
DX: S49.91XA Unspecified injury of right shoulder and upper arm, initial encounter (principal); I10 Essential (primary) hypertension; I48.91 Unspecified atrial fibrillation; Z72.0 Tobacco use; Z79.01 Long term (current) use of anticoagulants; Z79.82 Long term (current) use of aspirin; Z79.899 Other long term (current) drug therapy; W22.8XXA Striking against or struck by other objects, initial encounter
CPT/HCPCS: 73030

== ENCOUNTER 2022-03-16 06:50 | Emergency (ER) | payer MEDICARE ==
[2022-03-16] MEDS ORDERED: NS IV 1000 ML 1,000 ML IV STA (07:05)
--- NOTE | 2022-03-16 07:05 | ED Cough/URI ---
General Chief Complaint: COVID19 Suspect/Confirmed Stated Complaint: COVID + History of Present Illness Date Seen by Provider: Mar 16, 2022 Time Seen by Provider: 07:05 Initial Comments 81-year-old female presents with generalized malaise, cough, nausea and hard time keeping them down. Patient reports that 5 days ago she was diagnosed with COVID. That she just feels terrible. She is not having shortness of breath. Allergies and Home Medications Allergies Coded Allergies: methotrexate (Verified Allergy, Unknown, DIFFICULTY BREATHING, 08/24/18) morphine (Verified Allergy, Unknown, NAUSEA, 08/24/18) Patient Home Medication List Home Medication List Reviewed: Yes Aspirin (Ecotrin) 81 Mg Tablet.dr, 81 MG PO DAILY, (Reported) Entered as Reported by: HERLINDA VIDES on 09/20/16 134 Cephalexin (Cephalexin) 500 Mg Tablet, 500 MG PO TID Prescribed by: ARSENIO LARSON on 01/11/21 112 Diclofenac Sodium (Diclofenac Sodium) 75 Mg Tablet.dr, 75 MG PO BID Prescribed by: BRANT CHU on 02/22/20 1450 Metoprolol Succinate (Metoprolol Succinate) 50 Mg Tab.er.24h, (Reported) Entered as Reported by: JOB POLLARD on 02/22/20 192 Ofloxacin (Ocuflox) 5 Ml Soln, 5 ML OP Q4H Prescribed by: ARSENIO LARSON on 01/11/21 112 Rivaroxaban (Xarelto Tablet) 20 Mg Tablet, 20 MG PO DAILY, (Reported) Entered as Reported by: HERLINDA VIDES on 09/20/16 1343 Rosuvastatin Calcium (Rosuvastatin Calcium) 20 Mg Tablet, (Reported) Entered as Reported by: JOB POLLARD on 02/22/20 192 Tramadol HCl (Tramadol HCl) 50 Mg Tablet, 50 MG PO Q4H PRN for PAIN-MODERATE (5- 7) Prescribed by: ARSENIO LARSON on 01/11/21 1125 Review of Systems Review of Systems Constitutional: No chills, No fever; malaise, weakness EENTM: no symptoms reported Respiratory: cough; No short of breath Cardiovascular: No chest pain, No palpitations Gastrointestinal: No abdominal pain; nausea, vomiting Musculoskeletal: no symptoms reported Skin: no symptoms reported Past Nsrqmug-Sgriai-Jnpqdd Hx Patient Social History Tobacco Use?: No Use of E-Cig and/or Vaping dev: No Substance use?: No Alcohol Use?: No Pt feels they are or have been: No Immunizations Up To Date First/Initial COVID19 Vaccinat: 07/11/20 Second COVID19 Vaccination Ender: 08/08/20 Third COVID19 Vaccination Date: 07/11/20 Seasonal Allergies Seasonal Allergies: Yes Past Medical History Surgeries: Yes (vein stripped in R leg, bilat TKR, R ovary removed,hemorrhoidectomy ) Appendectomy, Joint Replacement, Tubal Ligation Respiratory: No Cardiac: Yes (temporal arteritis) Atrial Fibrillation, Hypertension Neurological: No Genitourinary: No Gastrointestinal: Yes (abd pain CT found colon mass ) Musculoskeletal: Yes Arthritis, Chronic Back Pain Endocrine: No HEENT: No Cancer: No Psychosocial: No Integumentary: No 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 0.0oz. 76.501983ob; 27.00 BMI Method:Stated General Appearance: WD/WN, no apparent distress HEENT: PERRL/EOMI Neck: full range of motion, supple Respiratory: lungs clear, normal breath sounds, no respiratory distress Cardiovascular: normal peripheral pulses, regular rate, rhythm Gastrointestinal: non tender, soft Neurologic/Psychiatric: alert, normal mood/affect, oriented x 3 Skin: normal color, warm/dry Progress/Results/Core Measures Suspected Sepsis SIRS Temperature: Pulse: Respiratory Rate: Laboratory Tests 03/16/22 07:08: White Blood Count 7.6 Blood Pressure / Mean: Laboratory Tests 03/16/22 07:08: Creatinine 0.89, Platelet Count 199, Total Bilirubin 0.6 Results/Orders Lab Results Laboratory Tests Test 03/16/22 07:08 Range/Units White Blood Count 7.6 4.3-11.0 10^3/uL Red Blood Count 4.60 3.80-5.11 10^6/uL Hemoglobin 15.0 11.5-16.0 g/dL Hematocrit 42 35-52 % Mean Corpuscular Volume 92 80-99 fL Mean Corpuscular Hemoglobin 33 25-34 pg Mean Corpuscular Hemoglobin Concent 36 32-36 g/dL Red Cell Distribution Width 12.9 10.0-14.5 % Platelet Count 199 130-400 10^3/uL Mean Platelet Volume 10.4 9.0-12.2 fL Immature Granulocyte % (Auto) 0 % Neutrophils (%) (Auto) 67 42-75 % Lymphocytes (%) (Auto) 16 12-44 % Monocytes (%) (Auto) 16 H 0-12 % Eosinophils (%) (Auto) 0 0-10 % Basophils (%) (Auto) 0 0-10 % Neutrophils # (Auto) 5.1 1.8-7.8 10^3/uL Lymphocytes # (Auto) 1.2 1.0-4.0 10^3/uL Monocytes # (Auto) 1.2 H 0.0-1.0 10^3/uL Eosinophils # (Auto) 0.0 0.0-0.3 10^3/uL Basophils # (Auto) 0.0 0.0-0.1 10^3/uL Immature Granulocyte # (Auto) 0.0 0.0-0.1 10^3/uL Sodium Level 137 135-145 MMOL/L Potassium Level 3.3 L 3.6-5.0 MMOL/L Chloride Level 96 L 98-107 MMOL/L Carbon Dioxide Level 27 21-32 MMOL/L Anion Gap 14 5-14 MMOL/L Blood Urea Nitrogen 9 7-18 MG/DL Creatinine 0.89 0.60-1.30 MG/DL Estimat Glomerular Filtration Rate 65 BUN/Creatinine Ratio 10 Glucose Level 105 70-105 MG/DL Calcium Level 9.0 8.5-10.1 MG/DL Corrected Calcium 9.5 8.5-10.1 MG/DL Total Bilirubin 0.6 0.1-1.0 MG/DL Aspartate Amino Transf (AST/SGOT) 29 5-34 U/L Alanine Aminotransferase (ALT/SGPT) 17 0-55 U/L Alkaline Phosphatase 49 40-136 U/L Total Protein 6.7 6.4-8.2 GM/DL Albumin 3.4 3.2-4.5 GM/DL My Orders Orders - KARIME CORBETT DO Cbc With Automated Diff (03/16/22 07:05) Comprehensive Metabolic Panel (03/16/22 07:05) Ua Culture If Indicated (03/16/22 07:05) Ondansetron Injection (Zofran Injectio (03/16/22 07:15) Ns Iv 1000 Ml (Sodium Chloride 0.9%) (03/16/22 07:05) Abdomen (Kub) 1 View (03/16/22 07:20) Chest 1 View Ap/Pa Only (03/16/22 07:20) Medications Given in ED Current Medications Medications Dose Ordered Sig/Kristi Route Start Time Stop Time Status Last Admin Dose Admin Ondansetron HCl 4 mg ONCE ONCE IVP 03/16/22 07:15 03/16/22 07:16 DC 03/16/22 07:10 4 MG Vital Signs/I&O 03/16/22 06:54 Temp 36.0 Pulse 82 Resp 16 B/P (MAP) 124/81 (95) Pulse Ox 100 O2 Delivery Room Air Capillary Refill : Progress Note : Progress Note Patient with known COVID. Patient is feeling better following IV fluids and Zofran. Patient's x-ray shows no acute abnormality on her chest. Abdomen x-ray shows gaseous distention but no obstruction. Discussed with her that she can try simethicone. Should start with clear liquid diet advance as tolerated. We will prescribe her some Zofran to help with the nausea. I encouraged her to follow-up with her primary care provider on Tuesday for recheck of her symptoms. She should return to the ER with any concerns. Patient stable discharged home Diagnostic Imaging Diagonstic Imaging: Xray Plain Films/CT/US/NM/MRI: abdomen Departure Impression Primary Impression: COVID-19 Disposition: HOME, SELF-CARE Condition: Stable Departure-Patient Inst. Referrals: CARLO NOBLE MD (PCP/Family) Primary Care Physician Patient Instructions: COVID-19 Overview Add. Discharge Instructions: Clear liquid diet, advance as tolerated. please follow up with your primary care provider on tuesday. return to ER with any worsening sob or other concerns All discharge instructions reviewed with patient and/or family. Voiced understanding. Scripts Ondansetron (Ondansetron Odt) 4 Mg Tab.rapdis 4 MG PO Q6H PRN for NAUSEA/VOMITING, #20 TAB 0 Refills Prov: KARIME CORBETT DO 03/16/22 KARIME CORBETT DO Mar 16, 2022 07:05
[2022-03-16] MEDS ORDERED: ONDANSETRON 4 MG/2 ML (SDV) Z0FRAN IVP ONE (07:15)
[2022-03-16 07:17] LABS: BASOPHILS % (AUTO) 0 % (0-10); EOSINOPHILS % (AUTO) 0 % (0-10); HEMATOCRIT 42 % (35-52); LYMPHOCYTES # (AUTO) 1.2 10^3/uL (1.0-4.0); LYMPHOCYTES % (AUTO) 16 % (12-44); MEAN CORPUSCULAR HEMOGLOBIN 33 pg (25-34); MEAN CORPUSCULAR HGB CONC 36 g/dL (32-36); MEAN CORPUSCULAR VOLUME 92 fL (80-99); MEAN PLATELET VOLUME 10.4 fL (9.0-12.2); MONOCYTES # (AUTO) 1.2 10^3/uL (0.0-1.0); MONOCYTES % (AUTO) 16 % (0-12); NEUTROPHILS # (AUTO) 5.1 10^3/uL (1.8-7.8); NEUTROPHILS % (AUTO) 67 % (42-75); PLATELET COUNT 199 10^3/uL (130-400); WHITE BLOOD COUNT 7.6 10^3/uL (4.3-11.0)
[2022-03-16 07:37] LABS: POTASSIUM 3.3 MMOL/L (3.6-5.0)
[2022-03-16 07:38] LABS: ALBUMIN 3.4 GM/DL (3.2-4.5); BILIRUBIN,TOTAL 0.6 MG/DL (0.1-1.0); CREATININE SERUM 0.89 MG/DL (0.60-1.30); TOTAL PROTEIN 6.7 GM/DL (6.4-8.2)
--- NOTE | 2022-03-16 08:13 | Diagnostic Imaging Report ---
INDICATION: Nausea, vomiting, cough, shortness of breath. TECHNIQUE: Single radiograph of the abdomen 7:34 AM CORRELATION STUDY: None FINDINGS: Prominent gas-filled loops of bowel are noted. This includes prominent gaseous distention of the colon. A few segments of small bowel are also suggested. No definitive obstructive feature. No evidence for large fecal impaction or overt constipation. Moderately advanced degenerative changes of the visualized spine with scoliotic curvature. Partial visualization right hip prosthesis. IMPRESSION: 1. Prominent gaseous distention of the gastrointestinal tract. No definitive obstructive feature. Dictated by: Dictated on workstation # [id number]
[2022-03-16] MEDS ORDERED: ONDA4TAB11 PO (08:37)
[2022-03-16 08:41] VITALS: BP 121/55
--- NOTE | 2022-03-16 08:43 | Diagnostic Imaging Report ---
INDICATION: Cough, shortness of breath, nausea and vomiting. FINDINGS: There is no focal consolidation. The heart may be mildly enlarged but no vascular congestion or kym edema. Some air trapping bilaterally. IMPRESSION: Upper limits heart size. Mild air trapping. No focal infiltrate or acute pleural pathology. Dictated by: Dictated on workstation # [id number]
== END 2022-03-16 08:41 | disposition home or self-care (01) ==
LOC: EDUNIT# 06:50 → ER FS 06:52
DX: U07.1 COVID-19 (principal); R11.0 Nausea; R14.0 Abdominal distension (gaseous); R05.9 Cough, unspecified
CPT/HCPCS: 36415; 71045; 74018; 80053; 85025

== ENCOUNTER 2022-06-21 14:01 | Emergency (ER) | payer MEDICARE ==
[~2022-06-21] VITALS: Ht 167 cm; Wt 80.0 kg
[~2022-06-21 14:01] MED LIST changes: +ONDA4TAB11 PO
--- NOTE | 2022-06-21 14:05 | ED Back Pain ---
General Chief Complaint: Back Problems Stated Complaint: LT LWR BACK/HIP PAIN History of Present Illness Date Seen by Provider: Jun 21, 2022 Time Seen by Provider: 14:05 Initial Comments 82-year-old female presents with left low back/left hip pain. Is been going on for couple days. Patient reports that she did recently start an exercise program at the long term. She went to urgent care who took x-rays and states that x-rays were negative. They sent her here because they think "it is her kidneys" her pain is little bit worse with movement. She has no urinary symptoms, nausea vomiting fevers chills or other systemic complaints. Allergies and Home Medications Allergies Coded Allergies: methotrexate (Verified Allergy, Unknown, DIFFICULTY BREATHING, 08/24/18) morphine (Verified Allergy, Unknown, NAUSEA, 08/24/18) Patient Home Medication List Home Medication List Reviewed: Yes Aspirin (Ecotrin) 81 Mg Tablet.dr, 81 MG PO DAILY, (Reported) Entered as Reported by: HERLINDA VIDES on 09/20/16 1343 Cephalexin (Cephalexin) 500 Mg Tablet, 500 MG PO TID Prescribed by: ARSENIO LARSON on 01/11/21 1124 Diclofenac Sodium (Diclofenac Sodium) 75 Mg Tablet.dr, 75 MG PO BID Prescribed by: BRANT CHU on 02/22/20 1450 Metoprolol Succinate (Metoprolol Succinate) 50 Mg Tab.er.24h, (Reported) Entered as Reported by: JOB POLLARD on 02/22/20 192 Ofloxacin (Ocuflox) 5 Ml Soln, 5 ML OP Q4H Prescribed by: ARSENIO LARSON on 01/11/21 1124 Ondansetron (Ondansetron Odt) 4 Mg Tab.rapdis, 4 MG PO Q6H PRN for NA USEA/VOMITING Prescribed by: KARIME CORBETT on 03/16/22 0837 Rivaroxaban (Xarelto Tablet) 20 Mg Tablet, 20 MG PO DAILY, (Reported) Entered as Reported by: HERLINDA VIDES on 09/20/16 1343 Rosuvastatin Calcium (Rosuvastatin Calcium) 20 Mg Tablet, (Reported) Entered as Reported by: JOB POLLARD on 02/22/20 1924 Tramadol HCl (Tramadol HCl) 50 Mg Tablet, 50 MG PO Q4H PRN for PAIN-MODERATE (5- 7) Prescribed by: ARSENIO LARSON on 01/11/21 1125 Review of Systems Constitutional: No chills, No fever EENTM: no symptoms reported Respiratory: no symptoms reported Cardiovascular: no symptoms reported Gastrointestinal: no symptoms reported Musculoskeletal: see HPI Skin: no symptoms reported Psychiatric/Neurological: No Symptoms Reported Past Luoyqgk-Iodgio-Wlbyft Hx Immunizations Up To Date First/Initial COVID19 Vaccinat: 07/11/20 Second COVID19 Vaccination Ender: 08/08/20 Third COVID19 Vaccination Date: 07/11/20 Seasonal Allergies Seasonal Allergies: Yes Past Medical History Surgeries: Yes (vein stripped in R leg, bilat TKR, R ovary removed,hemorrhoidectomy ) Appendectomy, Joint Replacement, Tubal Ligation Respiratory: No Cardiac: Yes (temporal arteritis) Atrial Fibrillation, Hypertension Neurological: No Genitourinary: No Gastrointestinal: Yes (abd pain CT found colon mass ) Musculoskeletal: Yes Arthritis, Chronic Back Pain Endocrine: No HEENT: No Cancer: No Psychosocial: No Integumentary: No 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 0.0oz. 76.983020du; BMI Method:Stated General Appearance: No Apparent Distress, WD/WN Cardiovascular: Regular Rate, Rhythm, No Edema Respiratory: Lungs Clear, Normal Breath Sounds Gastrointestinal: No Pulsatile Mass, Non Tender Back: No CVA Tenderness (L), No CVA Tenderness (R), No Vertebral Tenderness Extremity: Normal Capillary Refill, Other (Mild tenderness left hip, left lower back) Neurologic/Psychiatric: Alert, Oriented x3, No Motor/Sensory Deficits, Other (Uses a walker) Skin: Normal Color, Warm/Dry Progress/Results/Core Measures Results/Orders Lab Results Laboratory Tests Test 06/21/22 14:13 Range/Units Urine Color YELLOW Urine Clarity CLEAR Urine pH 6.0 5-9 Urine Specific [place] 1.020 1.016-1.022 Urine Protein NEGATIVE NEGATIVE Urine Glucose (UA) NEGATIVE NEGATIVE Urine Ketones 1+ H NEGATIVE Urine Nitrite NEGATIVE NEGATIVE Urine Bilirubin NEGATIVE NEGATIVE Urine Urobilinogen 0.2 < = 1.0 MG/DL Urine Leukocyte Esterase NEGATIVE NEGATIVE Urine RBC (Auto) TRACE-I H NEGATIVE Urine RBC RARE /HPF Urine WBC 0-2 /HPF Urine Squamous Epithelial Cells 0-2 /HPF Urine Crystals NONE /LPF Urine Bacteria NEGATIVE /HPF Urine Casts NONE /LPF Urine Mucus NEGATIVE /LPF Urine Culture Indicated NO My Orders Orders - CORBETT,KARIME L DO Ua Culture If Indicated (06/21/22 14:10) Ketorolac Injection (Toradol Injection) (06/21/22 14:10) Vital Signs/I&O 06/21/22 14:05 Temp 36.4 Pulse 118 Resp 16 B/P (MAP) 101/62 (75) Pulse Ox 93 O2 Delivery Room Air Progress Progress Note : Progress Note Patient's urinalysis was reviewed and shows no acute signs for an infection. Patient's physical exam is more consistent with hip pain from likely musculoskeletal overuse or no use. Patient's symptoms improved significantly with Toradol. I discussed CT with patient but with joint decision-making we both felt that as not indicated at this time as it does not appear to be kidney or kidney stone related. Patient has already had negative x-rays today. I will prescribe her naproxen to help with the pain. She should follow-up with her primary care provider as needed Departure Impression Primary Impression: Strain of left hip Qualified Codes: S76.012A - Strain of muscle, fascia and tendon of left hip, initial encounter Disposition: 01 HOME, SELF-CARE Condition: Stable Departure-Patient Inst. Referrals: CARLO NOBLE MD (PCP) Primary Care Physician Patient Instructions: Back Muscle Strain (DC), Lower Extremity Muscle Strain, Muscle Strain ED Add. Discharge Instructions: 4% topical lidocaine with menthol cream or gel use as directed on package to left lower back and hip Follow-up with your primary care provider if symptoms not improving over the next 7 to 10 days All discharge instructions reviewed with patient and/or family. Voiced understanding. Scripts Naproxen (Naprosyn) 500 Mg Tablet 500 MG PO BID, #20 TAB 0 Refills Prov: CORBETT,KARIME L DO 06/21/22 CORBETT,KARIME L DO Jun 21, 2022 14:05
[2022-06-21] MEDS ORDERED: KETOROLAC 30 MG/ML VIAL IM STA (14:10)
[2022-06-21 14:22] LABS: BILIRUBIN,URINE NEGATIVE (NEGATIVE); CLARITY,URINE CLEAR; COLOR,URINE YELLOW; GLUCOSE, URINE (UA) NEGATIVE (NEGATIVE); KETONES,URINE 1+ (NEGATIVE); LEUKOCYTE ESTERASE ,URINE NEGATIVE (NEGATIVE); NITRITE,URINE NEGATIVE (NEGATIVE); PROTEIN,URINE NEGATIVE (NEGATIVE)
[2022-06-21 14:26] LABS: BACTERIA,URINE NEGATIVE /HPF; RBC,URINE RARE /HPF; SQUAMOUS EPITHELIAL CELL,UR 0-2 /HPF; WBC,URINE 0-2 /HPF
[2022-06-21 14:39] VITALS: BP 101/62
[2022-06-21] MEDS ORDERED: NAPR-1071 PO (14:42)
== END 2022-06-21 14:43 | disposition home or self-care (01) ==
LOC: EDUNIT# 14:01 → ER FS 14:03
DX: S76.012A Strain of muscle, fascia and tendon of left hip, initial encounter (principal); X58.XXXA Exposure to other specified factors, initial encounter
CPT/HCPCS: 81000; 99284

== ENCOUNTER 2022-07-27 11:31 | Emergency (ER) | payer MEDICARE ==
[~2022-07-27] VITALS: Ht 167.7 cm; Wt 76.2 kg
[~2022-07-27 11:31] MED LIST changes: +NAPR-1071 PO
[2022-07-27 11:47] LABS: BASOPHILS # (AUTO) 0.1 10^3/uL (0.0-0.1); BASOPHILS % (AUTO) 0 % (0-10); EOSINOPHILS % (AUTO) 0 % (0-10); HEMATOCRIT 36 % (35-52); HEMOGLOBIN 11.7 g/dL (11.5-16.0); LYMPHOCYTES # (AUTO) 2.6 10^3/uL (1.0-4.0); LYMPHOCYTES % (AUTO) 20 % (12-44); MEAN CORPUSCULAR HEMOGLOBIN 30 pg (25-34); MEAN CORPUSCULAR HGB CONC 33 g/dL (32-36); MEAN CORPUSCULAR VOLUME 92 fL (80-99); MEAN PLATELET VOLUME 10.2 fL (9.0-12.2); MONOCYTES # (AUTO) 1.5 10^3/uL (0.0-1.0); MONOCYTES % (AUTO) 11 % (0-12); NEUTROPHILS # (AUTO) 8.7 10^3/uL (1.8-7.8); NEUTROPHILS % (AUTO) 68 % (42-75); PLATELET COUNT 265 10^3/uL (130-400); WHITE BLOOD COUNT 12.8 10^3/uL (4.3-11.0)
--- NOTE | 2022-07-27 11:49 | ED General ---
General Chief Complaint: Chest Pain Stated Complaint: CHEST PAINS Nursing Triage Note: PT TO RM 5 BY WC WITH C/O CP X5 DAYS BUT NOT CURRENTLY AND FEELS UNCOMFORTABLE ALL OVER. PT DENIES BEING SICK BUT STATES SHE HAD A FEVER A COUPLE DAYS AGO. PT SEEN AT [facility] YESTERDAY AND WAS TOLD HER O2 WAS LOW BUT NOT GIVEN HOME O2 Source of Information: Patient Exam Limitations: No Limitations History of Present Illness Date Seen by Provider: Jul 27, 2022 Time Seen by Provider: 11:33 Initial Comments 82-year-old female presents to the ED via POV with complaints of of "feeling awful" for the last 5 days. She states she can't eat, she has no energy. She reports that her oxygen has been low in the 30s or 40s, she reports short of breath during this. Currently patient's O2 is 99 to 100% on room air, she denies any shortness of breath at this time. She reports she had chest pain a couple days ago, was located across her chest. She is also complaining of generalized body aches. She states that she was hospitalized 3 weeks ago in [facility] for pneumonia. She denies fevers, abdominal pain, diarrhea, dysuria. Reports she was dry heaving earlier, thinks it is because she has not eaten. Allergies and Home Medications Allergies Coded Allergies: methotrexate (Verified Allergy, Unknown, DIFFICULTY BREATHING, 08/24/18) morphine (Verified Allergy, Unknown, NAUSEA, 08/24/18) Patient Home Medication List Home Medication List Reviewed: Yes Aspirin (Ecotrin) 81 Mg Tablet.dr, 81 MG PO DAILY, (Reported) Entered as Reported by: HERLINDA VIDSE on 09/20/16 1343 Cephalexin (Cephalexin) 500 Mg Tablet, 500 MG PO TID Prescribed by: ARSENIO LARSON on 01/11/21 1124 Diclofenac Sodium (Diclofenac Sodium) 75 Mg Tablet.dr, 75 MG PO BID Prescribed by: BRANT CHU on 02/22/20 1450 Levofloxacin (Levofloxacin) 250 Mg Tablet, 250 MG PO DAILY Prescribed by: FATUMA SMALLWOOD on 07/30/22 1648 Metoprolol Succinate (Metoprolol Succinate) 50 Mg Tab.er.24h, (Reported) Entered as Reported by: JOB POLLARD on 02/22/20 1924 Naproxen (Naprosyn) 500 Mg Tablet, 500 MG PO BID Prescribed by: KARIME CORBETT on 06/21/22 1442 Ofloxacin (Ocuflox) 5 Ml Soln, 5 ML OP Q4H Prescribed by: ARSENIO LARSON on 01/11/21 1124 Ondansetron (Ondansetron Odt) 4 Mg Tab.rapdis, 4 MG PO Q6H PRN for NAUSEA/VOMIT ING Prescribed by: KARIME CORBETT on 03/16/22 0837 Rivaroxaban (Xarelto Tablet) 20 Mg Tablet, 20 MG PO DAILY, (Reported) Entered as Reported by: HERLINDA VIDES on 09/20/16 1343 Rosuvastatin Calcium (Rosuvastatin Calcium) 20 Mg Tablet, (Reported) Entered as Reported by: JOB POLLARD on 02/22/20 1924 Sulfamethoxazole/Trimethoprim (Bactrim Ds Tablet) 1 Each Tablet, 1 EACH PO BID Prescribed by: Katrin Stanley on 07/27/22 1600 Tramadol HCl (Tramadol HCl) 50 Mg Tablet, 50 MG PO Q4H PRN for PAIN-MODERATE (5- 7) Prescribed by: ARSENIO LARSON on 01/11/21 1125 Review of Systems Review of Systems Constitutional: see HPI Past Luoylil-Bpyhsh-Tnapxf Hx Patient Social History Tobacco Use?: No Use of E-Cig and/or Vaping dev: No Substance use?: No Alcohol Use?: No Pt feels they are or have been: No Immunizations Up To Date Influenza Vaccine Up-to-Date: Yes; Up-to-Date First/Initial COVID19 Vaccinat: 07/11/20 Second COVID19 Vaccination Ender: 08/08/20 Third COVID19 Vaccination Date: 07/11/20 Seasonal Allergies Seasonal Allergies: Yes Past Medical History Surgery/Hospitalization HX: PNUMONIA, HTN, HLD, ANXIETY, ROSACIA KNEE REPLACEMENT BILAT, HIP REPLACEMENT, APPY, Surgeries: Yes (vein stripped in R leg, bilat TKR, R ovary removed,hemorrhoidectomy ) Appendectomy, Joint Replacement, Tubal Ligation Respiratory: No Cardiac: Yes (temporal arteritis) Atrial Fibrillation, Hypertension Neurological: No Genitourinary: No Gastrointestinal: Yes (abd pain CT found colon mass ) Musculoskeletal: Yes Arthritis, Chronic Back Pain Endocrine: No HEENT: No Cancer: No Psychosocial: No Integumentary: No Blood Disorders: No (DVT in 1979) Family Medical History Alzheimer's disease 19 MOTHER Cardiovascular disease 19 FATHER Hypertension 19 FATHER Myocardial infarction 19 FATHER Respiratory disorder G8 BROTHER (lung CA) Physical Exam Vital Signs Vital Signs - First Documented 07/27/22 07/27/22 11:35 16:35 Temp 36.8 Pulse 96 Resp 20 B/P (MAP) 141/80 (100) Pulse Ox 97 O2 Delivery Room Air Capillary Refill : Height, Weight, BMI Height: 5'6.00" Weight: 168lbs. 0.0oz. 76.178771hm; 27.00 BMI Method:Stated General Appearance: No Apparent Distress, WD/WN Neck: Normal Inspection, Supple Respiratory: Lungs Clear, Normal Breath Sounds, No Accessory Muscle Use, No Respiratory Distress Cardiovascular: Regular Rate, Rhythm, No Edema, No Gallop, No Murmur Extremity: Normal Inspection, Normal Range of Motion Neurologic/Psychiatric: Alert, No Motor/Sensory Deficits Skin: Normal Color, Warm/Dry Focused Exam Lactate Level 07/27/22 12:10: Lactic Acid Level 2.30*H 07/27/22 14:10: Lactic Acid Level 1.60 Lactic Acid Level Laboratory Tests Test 07/27/22 12:10 07/27/22 14:10 Lactic Acid Level 2.30 MMOL/L (0.50-2.00) *H 1.60 MMOL/L (0.50-2.00) Progress/Results/Core Measures Suspected Sepsis SIRS Temperature: Pulse: 96 Respiratory Rate: 20 Laboratory Tests 07/27/22 11:37: White Blood Count 12.8H Blood Pressure 141 /80 Mean: 100 07/27/22 12:10: Lactic Acid Level 2.30*H 07/27/22 14:10: Lactic Acid Level 1.60 Laboratory Tests 07/27/22 11:37: Creatinine 1.03, INR Comment 1.1, Platelet Count 265, Total Bilirubin 1.0 Results/Orders Lab Results Laboratory Tests Test 07/27/22 11:37 07/27/22 12:10 07/27/22 12:58 07/27/22 14:10 Range/Units White Blood Count 12.8 H 4.3-11.0 10^3/uL Red Blood Count 3.87 3.80-5.11 10^6/uL Hemoglobin 11.7 11.5-16.0 g/dL Hematocrit 36 35-52 % Mean Corpuscular Volume 92 80-99 fL Mean Corpuscular Hemoglobin 30 25-34 pg Mean Corpuscular Hemoglobin Concent 33 32-36 g/dL Red Cell Distribution Width 13.5 10.0-14.5 % Platelet Count 265 130-400 10^3/uL Mean Platelet Volume 10.2 9.0-12.2 fL Immature Granulocyte % (Auto) 0 % Neutrophils (%) (Auto) 68 42-75 % Lymphocytes (%) (Auto) 20 12-44 % Monocytes (%) (Auto) 11 0-12 % Eosinophils (%) (Auto) 0 0-10 % Basophils (%) (Auto) 0 0-10 % Neutrophils # (Auto) 8.7 H 1.8-7.8 10^3/uL Lymphocytes # (Auto) 2.6 1.0-4.0 10^3/uL Monocytes # (Auto) 1.5 H 0.0-1.0 10^3/uL Eosinophils # (Auto) 0.0 0.0-0.3 10^3/uL Basophils # (Auto) 0.1 0.0-0.1 10^3/uL Immature Granulocyte # (Auto) 0.0 0.0-0.1 10^3/uL Prothrombin Time 14.3 12.2-14.7 SEC INR Comment 1.1 0.8-1.4 Activated Partial Thromboplast Time 34 24-35 SEC D-Dimer 1.45 H 0.00-0.49 UG/ML Sodium Level 135 135-145 MMOL/L Potassium Level 3.9 3.6-5.0 MMOL/L Chloride Level 100 98-107 MMOL/L Carbon Dioxide Level 20 L 21-32 MMOL/L Anion Gap 15 H 5-14 MMOL/L Blood Urea Nitrogen 15 7-18 MG/DL Creatinine 1.03 0.60-1.30 MG/DL Estimat Glomerular Filtration Rate 54 BUN/Creatinine Ratio 15 Glucose Level 107 H 70-105 MG/DL Calcium Level 9.0 8.5-10.1 MG/DL Corrected Calcium 9.6 8.5-10.1 MG/DL Magnesium Level 1.9 1.6-2.4 MG/DL Total Bilirubin 1.0 0.1-1.0 MG/DL Aspartate Amino Transf (AST/SGOT) 19 5-34 U/L Alanine Aminotransferase (ALT/SGPT) 15 0-55 U/L Alkaline Phosphatase 45 40-136 U/L Total Creatine Kinase 30 29-168 U/L Troponin I < 0.028 <0.028 NG/ML B-Type Natriuretic Peptide 36.6 <100.0 PG/ML Total Protein 6.4 6.4-8.2 GM/DL Albumin 3.2 3.2-4.5 GM/DL Lactic Acid Level 2.30 *H 1.60 0.50-2.00 MMOL/L Influenza Type A (RT-PCR) Not Detected Not Detecte Influenza Type B (RT-PCR) Not Detected Not Detecte SARS-CoV-2 RNA (RT-PCR) Not Detected Not Detecte Test 07/27/22 14:54 Range/Units Urine Color YELLOW Urine Clarity CLEAR Urine pH 5.5 5-9 Urine Specific [place] <=1.005 1.016-1.022 Urine Protein TRACE H NEGATIVE Urine Glucose (UA) NEGATIVE NEGATIVE Urine Ketones TRACE H NEGATIVE Urine Nitrite NEGATIVE NEGATIVE Urine Bilirubin NEGATIVE NEGATIVE Urine Urobilinogen 0.2 < = 1.0 MG/DL Urine Leukocyte Esterase TRACE H NEGATIVE Urine RBC (Auto) 1+ H NEGATIVE Urine RBC NONE /HPF Urine WBC 5-10 H /HPF Urine Squamous Epithelial Cells 0-2 /HPF Urine Crystals NONE /LPF Urine Bacteria FEW H /HPF Urine Casts NONE /LPF Urine Mucus NEGATIVE /LPF Urine Culture Indicated YES Micro Results Microbiology 07/27/22 Urine Culture - Final, Complete Enterococcus faecalis Gram Pos Mixed Bacterial Teresa No Further Testing 07/27/22 Blood Culture - Preliminary, Resulted No growth 07/27/22 Blood Culture - Preliminary, Resulted No growth My Orders Orders - KATRIN STANLEY APRN Cbc With Automated Diff (07/27/22 11:38) Magnesium (07/27/22 11:38) Chest 1 View, Ap/Pa Only (07/27/22 11:38) Comprehensive Metabolic Panel (07/27/22 11:38) Protime With Inr (07/27/22 11:38) Partial Thromboplastin Time (07/27/22 11:38) Monitor-Rhythm Ecg Trace Only (07/27/22 11:38) Ed Iv/Invasive Line Start (07/27/22 11:38) Bnp [place] (07/27/22 11:46) Covid 19 Inhouse Test (07/27/22 11:49) Influenza A And B By Pcr (07/27/22 11:49) Troponin I [place] (07/27/22 11:37) Fibrin Degradation Products (07/27/22 11:52) Lactic Acid Analyzer (07/27/22 11:53) Ct Angio Chest W (R/O Pe) (07/27/22 12:28) Blood Culture (07/27/22 12:45) Ns Iv 1000 Ml (Sodium Chloride 0.9%) (07/27/22 12:45) Ua Culture If Indicated (07/27/22 12:45) Ceftriaxone 1 Gm Pre-Mix (Rocephin 1 Gm (07/27/22 13:15) Iohexol Injection (Omnipaque 350 Mg/Ml 1 (07/27/22 13:30) Ns (Ivpb) (Sodium Chloride 0.9% Ivpb Bag (07/27/22 13:30) Creatine Kinase (07/27/22 14:11) Urine Culture (07/27/22 14:54) Ceftriaxone (Rocephin) (07/27/22 15:55) Ns (Ivpb) (Sodium Chloride 0.9% Ivpb Bag (07/27/22 15:55) Medications Given in ED Vital Signs/I&O 07/27/22 07/27/22 11:35 16:35 Temp 36.8 Pulse 96 88 Resp 20 20 B/P (MAP) 141/80 (100) 127/94 Pulse Ox 97 O2 Delivery Room Air Capillary Refill : Blood Pressure Mean: 100 Progress Note : Time: 11:51 Progress Note Patient seen evaluated, resting in bed, no acute distress. Based on exam and symptoms, work-up initiated including CBC, CMP, troponin, coags, BNP, D-dimer, chest x-ray, EKG. 1228 labs reviewed. CBC shows slightly elevated WBC 12.8. CMP shows slightly decreased CO2 20 and slightly increased anion gap 15.. Troponin negative. Lactic acid slightly elevated 2.3. Creatinine kinase normal. BNP normal. Coags normal. D-dimer elevated 1.45. CTA chest ordered. Covid and flu negative. Chest x-ray reviewed. Small patchy infiltrate left lateral lung base could be developing pneumonia, this could also be healing pneumonia from recent hospitalization. Unable to compare because patient was admitted to [place]. 1600 UA shows trace leukocytes, RBC 1+, WBC 5-10, few bacteria. Rocephin administered for UTI. CTA reviewed. Negative for PE or other cardiopulmonary process. It does not show the pneumonia that was possibly seen on x-ray. It does show large hiatal hernia. Repeat lactic acid normal after IV fluids. Results discussed with patient. Patient denies knowing about hiatal hernia. Patient reports she is feeling better. Patient instructed to follow up with primary care regarding hiatal hernia. Also instructed to cook pickled meat prescription for antibiotic for UTI. Patient is agreeable to discharge plan. Discharge instructions and return precautions provided. ECG Initial ECG Impression Date: Jul 27, 2022 Initial ECG Impression Time: 11:38 Initial ECG Rate: 91 Initial ECG Rhythm: Normal Sinus Initial ECG Intervals: Normal Initial ECG Impression: Normal Initial ECG Comparisson: No Previous ECG Available Diagnostic Imaging Diagonstic Imaging: Xray Plain Films/CT/US/NM/MRI: [facility] [place] [place] NAME: [facility] REC#: [id number] PT STATUS: REG ER : 1940 PHYSICIAN: KATRIN STANLEY APRN ADMIT DATE: 07/27/22/ER Signed Date of Exam:07/27/22 CHEST 1 VIEW, AP/PA ONLY INDICATION: Chest pain. Portable chest 12:12 PM Heart size and pulmonary vascularity are normal. There is a small patchy area of consolidation at the left costophrenic angle. Right lung is clear. There are no effusions or pneumothoraces. IMPRESSION: Small patchy infiltrate left lateral lung base could be developing pneumonia. Dictated by: Dictated on workstation # [id number] Dict: 07/27/22 1213 Trans: 07/27/22 1604 [id number] Interpreted by: TIFFANIE JARRETT MD Electronically signed by: TIFFANIE JARRETT MD 07/27/22 1393 Diagonstic Imaging: CT Plain Films/CT/US/NM/MRI: chest Comments [facility] [place] [place] NAME: RALEIGH [facility] REC#: [id number] PT STATUS: REG ER : 1940 PHYSICIAN: KATRIN STANLEY APRN ADMIT DATE: 07/27/22/ER Signed Date of Exam:07/27/22 CT ANGIO CHEST W (R/O PE) PROCEDURE: CT angiography Chest TECHNIQUE: After intravenous administration of contrast, thin section axial CT angiography of the chest was performed. 3D MIP reconstructions were made. All CT scans use one or more of the following dose optimizing techniques: automated exposure control, MA and/or KvP adjustment based on a patient size and exam type, or iterative reconstruction. INDICATION: Shortness of air and elevated d-dimer COMPARISON: None available FINDINGS: Vasculature: No pulmonary emboli. No CT evidence of pulmonary hypertension or right ventricular strain. Thoracic aorta is normal in caliber. No aortic dissection or pseudoaneurysm. Heart and mediastinum: Visualized thyroid is normal. No supraclavicular, axillary, or intra-thoracic lymphadenopathy. The heart is normal in size without pericardial effusion. Large hiatal hernia with approximately half the stomach located in the chest. Pleura: No pleural effusion or pneumothorax. Lungs and airway: No endoluminal lesion in the trachea or central bronchi. No pneumonia or edema. No suspicious pulmonary nodules. Upper abdomen: No concerning abnormality in the upper abdomen. Bilateral renal cysts are present. Musculoskeletal: No concerning osseous lesion. IMPRESSION: 1. No acute cardiopulmonary process. Specifically, no pulmonary emboli or acute aortic syndrome. 2. Large hiatal hernia. Dictated by: Dictated on workstation # [id number] Dict: 07/27/22 1347 Trans: 07/27/22 1354 [facility] [id number] Interpreted by: CONNIE VU MD Electronically signed by: CONNIE VU MD 07/27/22 1354 Departure Impression Primary Impression: UTI (urinary tract infection) Additional Impression: Hiatal hernia Disposition: 01 HOME, SELF-CARE Condition: Stable Departure-Patient Inst. Referrals: CARLO NOBLE MD (PCP) Primary Care Physician Patient Instructions: Urinary Tract Infection, Adult (DC) Add. Discharge Instructions: Complete full course of antibiotic, even if you begin to feel better. Follow-up with your primary care provider regarding your hiatal hernia. They may refer you to a surgeon. Return for fevers, inability urinate, or any other new, concerning, or worsening symptoms. All discharge instructions reviewed with patient and/or family. Voiced understanding. Scripts Levofloxacin (Levofloxacin) 250 Mg Tablet 250 MG PO DAILY for 3 Days, #3 TAB Prov: FATUMA SMALLWOOD MD 07/30/22 Sulfamethoxazole/Trimethoprim (Bactrim Ds Tablet) 1 Each Tablet 1 EACH PO BID for 7 Days, #14 TAB 0 Refills Prov: KATRIN STANLEY APRN 07/27/22 Copy Copies To 1: CARLO NOBLE MD, BRITTANY R APRN Jul 27, 2022 11:49
[2022-07-27 11:55] LABS: INR 1.1 (0.8-1.4); PROTHROMBIN TIME PATIENT 14.3 SEC (12.2-14.7)
[2022-07-27 11:56] LABS: ALBUMIN 3.2 GM/DL (3.2-4.5)
[2022-07-27 11:57] LABS: CHLORIDE 100 MMOL/L (98-107); POTASSIUM 3.9 MMOL/L (3.6-5.0); SODIUM 135 MMOL/L (135-145)
[2022-07-27 11:59] LABS: GLUCOSE 107 MG/DL (70-105); TOTAL PROTEIN 6.4 GM/DL (6.4-8.2)
[2022-07-27 12:00] LABS: CARBON DIOXIDE 20 MMOL/L (21-32)
[2022-07-27 12:02] LABS: ALKALINE PHOSPHATASE 45 U/L (40-136)
[2022-07-27 12:03] LABS: CREATININE SERUM 1.03 MG/DL (0.60-1.30); GFR ESTIMATED 54
[2022-07-27 12:04] LABS: BUN/CREATININE RATIO 15
[2022-07-27 12:05] LABS: ALANINE AMINOTRANSFERASE 15 U/L (0-55); MAGNESIUM 1.9 MG/DL (1.6-2.4)
--- NOTE | 2022-07-27 12:16 | Diagnostic Imaging Report ---
INDICATION: Chest pain. Portable chest 12:12 PM Heart size and pulmonary vascularity are normal. There is a small patchy area of consolidation at the left costophrenic angle. Right lung is clear. There are no effusions or pneumothoraces. IMPRESSION: Small patchy infiltrate left lateral lung base could be developing pneumonia. Dictated by: Dictated on workstation # [id number]
[2022-07-27] MEDS ORDERED: NS IV 1000 ML 1,000 ML IV SCH (12:45)
[2022-07-27] MEDS ORDERED: cefTRIAXone PRE-MIX 50 ML IV ONE (13:15)
[2022-07-27] MEDS ORDERED: IOHEXOL 350 MG/ML 100 ML (OMNIPAQUE 350) VIAL IV ONE (13:30)
[2022-07-27] MEDS ORDERED: NS 100 ML (IVPB) BAG IV ONE (13:30)
--- NOTE | 2022-07-27 13:56 | Diagnostic Imaging Report ---
PROCEDURE: CT angiography Chest TECHNIQUE: After intravenous administration of contrast, thin section axial CT angiography of the chest was performed. 3D MIP reconstructions were made. All CT scans use one or more of the following dose optimizing techniques: automated exposure control, MA and/or KvP adjustment based on a patient size and exam type, or iterative reconstruction. INDICATION: Shortness of air and elevated d-dimer COMPARISON: None available FINDINGS: Vasculature: No pulmonary emboli. No CT evidence of pulmonary hypertension or right ventricular strain. Thoracic aorta is normal in caliber. No aortic dissection or pseudoaneurysm. Heart and mediastinum: Visualized thyroid is normal. No supraclavicular, axillary, or intra-thoracic lymphadenopathy. The heart is normal in size without pericardial effusion. Large hiatal hernia with approximately half the stomach located in the chest. Pleura: No pleural effusion or pneumothorax. Lungs and airway: No endoluminal lesion in the trachea or central bronchi. No pneumonia or edema. No suspicious pulmonary nodules. Upper abdomen: No concerning abnormality in the upper abdomen. Bilateral renal cysts are present. Musculoskeletal: No concerning osseous lesion. IMPRESSION: 1. No acute cardiopulmonary process. Specifically, no pulmonary emboli or acute aortic syndrome. 2. Large hiatal hernia. Dictated by: Dictated on workstation # [id number]
[2022-07-27 15:04] LABS: BILIRUBIN,URINE NEGATIVE (NEGATIVE); CLARITY,URINE CLEAR; COLOR,URINE YELLOW; GLUCOSE, URINE (UA) NEGATIVE (NEGATIVE); KETONES,URINE TRACE (NEGATIVE); LEUKOCYTE ESTERASE ,URINE TRACE (NEGATIVE); NITRITE,URINE NEGATIVE (NEGATIVE); PH,URINE 5.5 (5-9); PROTEIN,URINE TRACE (NEGATIVE)
[2022-07-27 15:29] LABS: BACTERIA,URINE FEW /HPF; SQUAMOUS EPITHELIAL CELL,UR 0-2 /HPF
[2022-07-27] MEDS ORDERED: cefTRIAXone 1,000 MG VIAL (for IV or IM) ONE (15:55)
[2022-07-27] MEDS ORDERED: NS (IVPB) 50 ML ONE (15:55)
[2022-07-27] MEDS ORDERED: SULF1TAB38 PO (16:00)
[2022-07-27 16:35] VITALS: BP 127/94
[2022-07-30] MEDS ORDERED: CIPR500T5 PO (16:46)
[2022-07-30] MEDS ORDERED: LEVO250T66 PO (16:48)
== END 2022-07-27 16:35 | disposition home or self-care (01) ==
LOC: EDUNIT# 11:31 → ER 11:33
DX: N39.0 Urinary tract infection, site not specified (principal); K44.9 Diaphragmatic hernia without obstruction or gangrene; Z20.822 Contact with and (suspected) exposure to COVID-19
CPT/HCPCS: 36415; 71045; 71275; 80053; 81000; 82550; 83605; 83735; 83880; 84484; 85025; 85379; 85610; 85730; 87040; 87077; 87088; 87186; 87636; 93005; 93041